=== PATIENT | male | born 1960 | race Caucasian/White ===

== ENCOUNTER 2017-02-26 15:45 | Inpatient (IN) | payer OTHER ==
[~2017-02-26] VITALS: Ht 170.2 cm; Wt 60.7 kg
[2017-02-26 20:41] VITALS: BP 153/86; RESP 18
[2017-02-26 22:00] VITALS: Ht 170.2 cm; Wt 60.7 kg
[2017-02-26 22:57] LABS: ADD UMIC YES; UR ASCORBIC ACID NEGATIVE (NEGATIVE); UR BILIRUBIN (Dip) NEGATIVE (NEGATIVE); UR BLOOD (Dip) NEGATIVE (NEGATIVE); UR CLARITY CLEAR (CLEAR); UR COLOR YELLOW (YELLOW); UR GLUCOSE (Dip) NEGATIVE (NEGATIVE); UR KETONES (Dip) NEGATIVE (NEGATIVE); UR LEUKOCYTE ESTERASE (Dip) NEGATIVE Leu/ul (NEGATIVE); UR NITRITE (Dip) NEGATIVE (NEGATIVE); UR RBC 1 /HPF (0-5); UR SPECIFIC GRAVITY (Dip) 1.014 (1.003-1.030); UR TOTAL PROTEIN (Dip) 2+ mg/dl (NEGATIVE); UR UROBILINOGEN (Dip) NEGATIVE (NEGATIVE)
[2017-02-26] MEDS ORDERED: GLUCOSE GEL 15 GRAM TUBE PO PRN ×2 (23:30)
[2017-02-26] MEDS ORDERED: DEXTROSE 50% 50 ML SYRINGE IV PRN ×2 (23:30)
[2017-02-26] MEDS ORDERED: MAGNESIUM HYDROXIDE 30ML CUP PO PRN (23:30)
[2017-02-26] MEDS ORDERED: GLUCOSE GEL 15 GRAM TUBE BUCCAL PRN (23:30)
[2017-02-26] MEDS ORDERED: LACTULOSE 30ML CUP PO PRN (23:30)
[2017-02-26] MEDS ORDERED: HYDROCODONE/APAP (5/325) TAB PO PRN (23:30)
[2017-02-26] MEDS ORDERED: GLUCAGON 1 MG INJ IM PRN (23:30)
[2017-02-26] MEDS ORDERED: BISACODYL 10 MG SUPP PR PRN (23:30)
[2017-02-27] MEDS: HYDROCODONE/APAP (5/325) TAB PO PRN ×6 (00:01→21:47)
[2017-02-27] MEDS: ACCUCHECK AT 2AM (Patients on SS coverage) XX SCH (02:30)
[2017-02-27] MEDS: GABAPENTIN 300 MG CAP PO SCH ×3 (06:31→21:02)
[2017-02-27 07:28] LABS: BASOPHILS % 0.3 % (0.0-2.0); EOSINOPHILS # 0.1 10^3/ul (0.0-0.5); EOSINOPHILS % 1.6 % (0.0-7.0); HEMATOCRIT 35.7 % (42.0-52.0); HEMOGLOBIN 12.2 g/dl (14.0-18.0); LYMPHOCYTES # 2.6 10^3/ul (0.8-2.9); LYMPHOCYTES % 41.4 % (15.0-51.0); MEAN CORPUSCULAR HEMOGLOBIN 28.8 pg (29.0-33.0); MEAN CORPUSCULAR HGB CONC 34.2 g/dl (32.0-37.0); MEAN CORPUSCULAR VOLUME 84.2 fl (82.0-101.0); MONOCYTE # 0.5 10^3/ul (0.3-0.9); MONOCYTES % 8.6 % (0.0-11.0); NEUTROPHILS % 47.9 % (39.0-77.0); PLATELET COUNT 237 10^3/UL (140-415); RED BLOOD COUNT 4.24 10^6/ul (4.70-6.10); WHITE BLOOD COUNT 6.2 10^3/ul (4.8-10.8)
[2017-02-27 07:33] LABS: ADD SCAN DIFF NO
[2017-02-27 07:48] VITALS: BP 151/85; RESP 18
[2017-02-27 08:03] LABS: ALBUMIN 3.5 g/dl (3.3-4.9); CREATININE 1.37 mg/dl (0.61-1.24); POTASSIUM 4.5 mmol/L (3.5-5.1)
[2017-02-27] MEDS: HYDROCHLOROTHIAZIDE 12.5 MG CAP PO SCH (08:21)
[2017-02-27] MEDS: AMLODIPINE 10 MG TAB PO SCH (08:21)
[2017-02-27] MEDS: ASPIRIN (EC) 325 MG TAB PO SCH (08:21)
[2017-02-27] MEDS: DOCUSATE SODIUM 100 MG CAP PO SCH ×2 (08:22→21:02)
[2017-02-27] MEDS: AMIODARONE 200 MG TAB PO SCH ×2 (08:22→21:02)
[2017-02-27] MEDS: Insulin NOVOLOG SS MILD Algorithm (SS with meals and bedtime) SC SCH ×4 (08:26→21:00)
--- NOTE | 2017-02-27 12:05 | CONS ---
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 Diabetes Mellitus type 2. 2. Diabetic Polyneuropathy. 3. Dysphagia. 4. Chronic Kidney Disease. 6. Hyperlipidemia 7. COPD 8. Polysubstance abuse 9. Impairments in self-care, mobility and cognition. PLAN: The patient has been admitted for comprehensive interdisciplinary acute rehab and is anticipated to tolerate 3 hours of daily therapy in divided doses for at least 5/7 days a week. The treatment plan will include: 1. Physical therapy to focus on bed mobility, transfers, and household ambulation with the goal of having the patient reach a standby assist at the wheelchair level, minimal assist for ambulation. 2. Occupational therapy to focus on hygiene, grooming, dressing, bathing, and toileting activities with the goal of having the patient reach a standby assist level at the wheelchair level. 3. Speech therapy for full cognitive assessment and retraining in addition to dysphagia management with the goal of having the patient return to baseline cognition and meet nutritional needs by mouth. 4. Rehabilitation nursing for carryover of therapeutic interventions, the goal of continent of bowel and bladder, the goal of pain adequately managed on oral medications. ESTIMATED LENGTH OF STAY: 14 days. DISPOSITION GOAL: Home. Rehabilitation Barrier: Cognition and aphasia Intervention for barrier: Speech therapy I acknowledge that I performed a full physical examination on this patient within 24 hours of admission to the rehabilitation unit and believe the patient is a good candidate for comprehensive interdisciplinary rehab care and is anticipated to make reasonable goals in a reasonable period of time as outlined above. Consultation Date/Type/Reason Admit Date/Time Feb 26, 2017 at 20:05 Date of Consultation: Feb 27, 2017 Type of Consultation: Rehabilitation Reason for Consultation Rehabilitation Post Admission Physician Evaluation Hx of Present Illness The patient is a 56 year-old right handed male with a history of uncontrolled diabetes, diabetic neuropathy, hypertension, chronic kidney disease, hyperlipidemia, COPD, polysubstance abuse who was admitted with complaints of severe headache right-sided weakness dysarthria and aphasia. Imaging studies were performed and revealed an acute infarct in the left hailey. Patient started on aspirin. Patient also noted to have dysphasia. The patient's hospital course is also notable for cognitive impairment, and significant impairments in self-care and mobility as compared to baseline. The patient has been cleared to transfer to the rehabilitation unit for comprehensive interdisciplinary rehab care. FUNCTIONAL HISTORY: Prior to recent events, he was independent in self-care tasks and mobility. Currently, he requires moderate assist to maximal assist for self-care and mobility tasks. Constitutional: No chills, No diaphoresis, No disoriented, No febrile, No improved, No no complaints, No other, No poor po, No requiring IVF, No requiring O2 Eyes: No discharge, No no complaints, No other, No pain, No redness, No visual change ENT: No bleeding, No congestion, No discharge, No dysphagia, No no complaints, No other, No pain, No sore throat Respiratory: No cough, No no complaints, No other, No pain, No pleuritic pain, No shortness of breath, No sputum, No wheezing Cardiovascular: No chest pain, No edema, No lightheadedness, No no complaints, No orthopenea, No other, No palpitations, No paroxysmal nocturnal dyspnea Gastrointestinal: No blood, No constipation, No decreased appetite, No diarrhea , No flatus, No nausea, No no complaints, No other, No pain, No passing stool, No vomiting Genitourinary: No bleeding, No discharge, No dysuria, No flank pain, No hematuria, No no complaints, No other Past Medical History PAST MEDICAL HISTORY: 1. Polysubstance abuse 2. polyneuropathy 3. Chronic kidney disease. 4. Diabetes mellitus type 2. 5. Hypertension. 6. Chronic obstructive pulmonary disease. Social History SOCIAL HISTORY: The patient lives at home and hopes to return there upon discharge. Smoking Status: Former smoker Exam/Review of Systems Vital Signs Vitals Vital Signs Date Time Temp Pulse Resp B/P Pulse Ox O2 Delivery O2 Flow Rate FiO2 02/27/17 07:48 97.9 62 18 151/85 96 Intake and Output 02/26/17 02/26/17 02/27/17 15:00 23:00 07:00 Intake Total 1050 ml Output Total 600 ml Balance 450 ml Exam PHYSICAL EXAMINATION: VITAL SIGNS: The patient is currently afebrile with stable vital signs. HEENT: The extraocular motions are intact. Oropharynx is clear. LUNGS: Clear anteriorly. CARDIAC: S1, S2. ABDOMEN: Soft, nontender, positive bowel sounds. NEUROLOGIC: He is awake and alert, and will follow simple 1-step commands. He demonstrates good strength in left upper and lower extremity. He demonstrates antigravity strength in right lower extremity. He has impaired dynamic balance Functional status_ Mod to max assist for self care and mobility. I have reviewed the preadmission screen and the patient's current functional status is consistent with the preadmission screen. Results Result Diagram: 02/27/17 0605 02/27/17 0645 Results 24 hrs Laboratory Tests Test 02/26/17 21:45 02/26/17 23:07 02/27/17 06:05 02/27/17 06:45 Urine Color YELLOW Urine Clarity CLEAR Urine pH 6.0 Urine Specific [place] 1.014 Urine Ketones NEGATIVE Urine Nitrite NEGATIVE Urine Bilirubin NEGATIVE Urine Urobilinogen NEGATIVE Urine Leukocyte Esterase NEGATIVE Urine Microscopic RBC 1 Urine Microscopic WBC 0 Urine Hemoglobin NEGATIVE Urine Glucose NEGATIVE Urine Total Protein 2+ H Bedside Glucose 140 White Blood Count 6.2 Red Blood Count 4.24 L Hemoglobin 12.2 L Hematocrit 35.7 L Mean Corpuscular Volume 84.2 Mean Corpuscular Hemoglobin 28.8 L Mean Corpuscular Hemoglobin Concent 34.2 Red Cell Distribution Width 13.0 Platelet Count 237 Mean Platelet Volume 12.0 H Neutrophils % 47.9 Lymphocytes % 41.4 Monocytes % 8.6 Eosinophils % 1.6 Basophils % 0.3 Nucleated Red Blood Cells % 0.0 Neutrophils # 3.0 Lymphocytes # 2.6 Monocytes # 0.5 Eosinophils # 0.1 Basophils # 0.0 Nucleated Red Blood Cells # 0.0 Sodium Level 136 Potassium Level 4.5 Chloride Level 104 Carbon Dioxide Level 25 Anion Gap 12 Blood Urea Nitrogen 37 H Creatinine 1.37 H Glucose Level 161 Calcium Level 9.0 Total Bilirubin 0.0 L Direct Bilirubin 0.00 Indirect Bilirubin 0.0 Aspartate Amino Transf (AST/SGOT) 37 Alanine Aminotransferase (ALT/SGPT) 37 Alkaline Phosphatase 61 Total Protein 7.0 Albumin 3.5 Globulin 3.50 H Albumin/Globulin Ratio 1.00 Test 02/27/17 08:03 Bedside Glucose 155 Medications Medications ALLERGIES: Lisinopril. Current Medications Docusate Sodium (Colace) 100 mg BID PO Last administered on 02/27/17t 08:22; Admin Dose 100 MG; Start 02/27/17 at 09:00 Senna (Senokot) 1 tab HS PO ; Start 02/27/17 at 21:00 Bisacodyl (Dulcolax Supp) 10 mg DAILY PRN [place] CONSTIPATION; Start 02/26/17 at 23 :30 Magnesium Hydroxide (Milk Of Mag) 30 ml BID PRN PO CONSTIPATION; Start at 23:30 Lactulose (Enulose) 20 gm DAILY PRN PO CONSTIPATION; Start 02/26/17 at 23:30 Acetaminophen (Tylenol Tab) 650 mg Q4H PRN PO FEVER, H/A; MILD PAIN; Start at 23:30 Acetaminophen/ Hydrocodone Bitart ([place] (5/325)) 1 tab Q4H PRN PO MODERATE PAIN LEVEL 4-6; Start 02/26/17 at 23:30 Acetaminophen/ Hydrocodone Bitart ([place] (5/325)) 2 tab Q4H PRN PO SEVERE PAIN Last administered on 02/27/17 08:22; Admin Dose 2 TAB; Start 02/26/17 at 23:30 Amiodarone HCl (Cordarone) 200 mg BID PO Last administered on 02/27/17 08:22; Admin Dose 200 MG; Start 02/27/17 at 09:00 Amlodipine Besylate (Norvasc) 10 mg DAILY PO Last administered on 02/27/17 08: 21; Admin Dose 10 MG; Start 02/27/17 at 09:00 Atorvastatin Calcium (Lipitor) 20 mg DAILY@21 PO ; Start 02/27/17 at 21:00 Carvedilol (Coreg) 12.5 mg BID PO Last administered on 02/27/17 08:21; Admin Dose 12.5 MG; Start 02/27/17 at 09:00 Hydralazine HCl (Apresoline) 100 mg TID PO Last administered on 02/27/17 08:21 ; Admin Dose 100 MG; Start 02/27/17 at 09:00 Aspirin (Ecotrin) 325 mg DAILY PO Last administered on 02/27/17 08:21; Admin Dose 325 MG; Start 02/27/17 at 09:00 Hydrochlorothiazide (Hydrochlorothiazide) 12.5 mg DAILY PO Last administered on 02/27/17 08:21; Admin Dose 12.5 MG; Start 02/27/17 at 09:00 Clonidine (Catapres) 0.1 mg Q6H PRN PO ELEVATED BLOOD PRESSURE; Start 02/26/17 at 23:30 Diagnostic Test (Pha) (Accu-Chek) 1 ea 02 XX ; Start 02/27/17 at 02:00 Miscellaneous Information 1 ea NOTE XX ; Start 02/26/17 at 23:30 Glucose (Glutose) 15 gm Q15M PRN PO DECREASED GLUCOSE; Start 02/26/17 at 23:30 Glucose (Glutose) 22.5 gm Q15M PRN PO DECREASED GLUCOSE; Start 02/26/17 at 23: 30 Dextrose (D50w Syringe) 25 ml Q15M PRN IV DECREASED GLUCOSE; Start 02/26/17 at 23:30 Dextrose (D50w Syringe) 50 ml Q15M PRN IV DECREASED GLUCOSE; Start 02/26/17 at 23:30 Glucagon (Glucagen) 1 mg Q15M PRN IM DECREASED GLUCOSE; Start 02/26/17 at 23:30 Glucose (Glutose) 15 gm Q15M PRN BUCCAL DECREASED GLUCOSE; Start 02/26/17 at 23 :30 Gabapentin (Neurontin) 300 mg Q8 PO Last administered on 02/27/17 06:31; Admin Dose 300 MG; Start 02/27/17 at 06:00 TAYLOR RON MD Feb 27, 2017 12:05
[2017-02-27 20:00] VITALS: BP 151/89; RESP 18
[2017-02-27] MEDS: SENNA TAB PO SCH (21:02)
[2017-02-27] MEDS: ATORVASTATIN 20 MG TAB PO SCH (21:02)
[2017-02-28] MEDS: ACCUCHECK AT 2AM (Patients on SS coverage) XX SCH (02:00)
[2017-02-28] MEDS: HYDROCODONE/APAP (5/325) TAB PO PRN ×5 (03:27→21:00)
[2017-02-28] MEDS: GABAPENTIN 300 MG CAP PO SCH ×3 (06:21→21:01)
[2017-02-28 07:30] VITALS: BP 154/87; RESP 18
[2017-02-28] MEDS: DOCUSATE SODIUM 100 MG CAP PO SCH ×2 (08:07→21:02)
[2017-02-28] MEDS: AMLODIPINE 10 MG TAB PO SCH (08:07)
[2017-02-28] MEDS: AMIODARONE 200 MG TAB PO SCH ×2 (08:07→21:04)
[2017-02-28] MEDS: ASPIRIN (EC) 325 MG TAB PO SCH (08:07)
[2017-02-28] MEDS: HYDROCHLOROTHIAZIDE 12.5 MG CAP PO SCH (08:07)
[2017-02-28] MEDS: Insulin NOVOLOG SS MILD Algorithm (SS with meals and bedtime) SC SCH ×4 (08:09→21:00)
--- NOTE | 2017-02-28 10:52 | CONS ---
Date/Time of Note Date/Time of Note DATE: 02/28/17 TIME: 10:50 Consult Date/Type/Reason Admit Date/Time Feb 26, 2017 at 20:05 Initial Consult Date 02/27/17 Type of Consultation: Rehabilitation Subjective Currently comfortable Objective Lungs clear anterior Minimal to moderate assist Vital Signs Date Time Temp Pulse Resp B/P Pulse Ox O2 Delivery O2 Flow Rate FiO2 02/27/17 20:00 98.5 70 18 151/89 97 Intake and Output 02/27/17 02/27/17 02/28/17 15:00 23:00 07:00 Intake Total 1000 ml 600 ml 700 ml Output Total 200 ml 750 ml Balance 800 ml -150 ml 700 ml Results/Medications Result Diagram: 02/27/17 0605 02/27/17 0645 Results 24 hrs Laboratory Tests Test 02/27/17 12:25 02/27/17 17:20 02/27/17 20:53 02/28/17 07:55 Bedside Glucose 185 173 149 183 Medications Current Medications Docusate Sodium (Colace) 100 mg BID PO Last administered on 02/28/17 08:07; Admin Dose 100 MG; Start 02/27/17 at 09:00 Senna (Senokot) 1 tab HS PO Last administered on 02/27/17 21:02; Admin Dose 1 TAB; Start 02/27/17 at 21:00 Bisacodyl (Dulcolax Supp) 10 mg DAILY PRN [place] CONSTIPATION; Start 02/26/17 at 23 :30 Magnesium Hydroxide (Milk Of Mag) 30 ml BID PRN PO CONSTIPATION; Start at 23:30 Lactulose (Enulose) 20 gm DAILY PRN PO CONSTIPATION; Start 02/26/17 at 23:30 Acetaminophen (Tylenol Tab) 650 mg Q4H PRN PO FEVER, H/A; MILD PAIN; Start at 23:30 Acetaminophen/ Hydrocodone Bitart ([place] (5/325)) 1 tab Q4H PRN PO MODERATE PAIN LEVEL 4-6; Start 02/26/17 at 23:30 Acetaminophen/ Hydrocodone Bitart ([place] (5/325)) 2 tab Q4H PRN PO SEVERE PAIN Last administered on 02/28/17 07:37; Admin Dose 2 TAB; Start 02/26/17 at 23:30 Amiodarone HCl (Cordarone) 200 mg BID PO Last administered on 02/28/17 08:07; Admin Dose 200 MG; Start 02/27/17 at 09:00 Amlodipine Besylate (Norvasc) 10 mg DAILY PO Last administered on 02/28/17 08: 07; Admin Dose 10 MG; Start 02/27/17 at 09:00 Atorvastatin Calcium (Lipitor) 20 mg DAILY@21 PO Last administered on 21:02; Admin Dose 20 MG; Start 02/27/17 at 21:00 Carvedilol (Coreg) 12.5 mg BID PO Last administered on 02/28/17 08:08; Admin Dose 12.5 MG; Start 02/27/17 at 09:00 Hydralazine HCl (Apresoline) 100 mg TID PO Last administered on 02/28/17 08:08 ; Admin Dose 100 MG; Start 02/27/17 at 09:00 Aspirin (Ecotrin) 325 mg DAILY PO Last administered on 02/28/17 08:07; Admin Dose 325 MG; Start 02/27/17 at 09:00 Hydrochlorothiazide (Hydrochlorothiazide) 12.5 mg DAILY PO Last administered on 02/28/17 08:07; Admin Dose 12.5 MG; Start 02/27/17 at 09:00 Clonidine (Catapres) 0.1 mg Q6H PRN PO ELEVATED BLOOD PRESSURE; Start 02/26/17 at 23:30 Diagnostic Test (Pha) (Accu-Chek) 1 ea 02 XX ; Start 02/27/17 at 02:00 Miscellaneous Information 1 ea NOTE XX ; Start 02/26/17 at 23:30 Glucose (Glutose) 15 gm Q15M PRN PO DECREASED GLUCOSE; Start 02/26/17 at 23:30 Glucose (Glutose) 22.5 gm Q15M PRN PO DECREASED GLUCOSE; Start 02/26/17 at 23: 30 Dextrose (D50w Syringe) 25 ml Q15M PRN IV DECREASED GLUCOSE; Start 02/26/17 at 23:30 Dextrose (D50w Syringe) 50 ml Q15M PRN IV DECREASED GLUCOSE; Start 02/26/17 at 23:30 Glucagon (Glucagen) 1 mg Q15M PRN IM DECREASED GLUCOSE; Start 02/26/17 at 23:30 Glucose (Glutose) 15 gm Q15M PRN BUCCAL DECREASED GLUCOSE; Start 02/26/17 at 23 :30 Gabapentin (Neurontin) 300 mg Q8 PO Last administered on 02/28/17t 06:21; Admin Dose 300 MG; Start 02/27/17 at 06:00 Mupirocin (Bactroban) 1 applic BID TOP ; Start 02/28/17 at 21:00; Stop 03/07/17 at 20:59 Assessment/Plan Chief Complaint/Hosp Course The patient is a 56 year-old right handed male with a history of uncontrolled diabetes, diabetic neuropathy, hypertension, chronic kidney disease, hyperlipidemia, COPD, polysubstance abuse who was admitted with complaints of severe headache right-sided weakness dysarthria and aphasia. Imaging studies were performed and revealed an acute infarct in the left hailey. Patient started on aspirin. Patient also noted to have dysphasia. The patient's hospital course is also notable for cognitive impairment, and significant impairments in self-care and mobility as compared to baseline. The patient has been cleared to transfer to the rehabilitation unit for comprehensive interdisciplinary rehab care. FUNCTIONAL HISTORY: Prior to recent events, he was independent in self-care tasks and mobility. Currently, he requires moderate assist to maximal assist for self-care and mobility tasks. 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 Dysphagia-continue speech therapy Chronic Kidney Disease. Hyperlipidemia COPD Polysubstance abuse TAYLOR RON MD Feb 28, 2017 10:52
--- NOTE | 2017-02-28 12:23 | HP ---
Date/Time of Note Date/Time of Note DATE: 02/28/17 TIME: 12:18 Assessment/Plan Lines/Catheters Urinary Cath still in place: No Assessment/Plan Assessment/Plan 1 acute CVA with right-sided hemiparesis. Plan is to continue current medical management continue aspirin continue statin therapy continue good blood pressure control. Continue physical therapy occupational therapy 2. Hypertension continue current blood pressure regimen 3. Renal insufficiency possible CKD. Etiology may be secondary to hypertensive nephrosclerosis. Other possibilities include ATN. Plan is check UA with microanalysis check urine lites will check renal ultrasound. We will continue supportive care renally dose meds avoid nephrotoxic 4. Anemia monitor H&H levels 5 diabetes continue Accu-Cheks insulin sliding scale 6 mineral bone disorder will monitor calcium phosphorus levels 7 history of COPD. Continue to monitor continue medical management 8. GI DVT prophylaxis continue PPI aspirin sequential leg squeezers 9. History of arrhythmia. Patient is on amiodarone and Coreg. We will continue to monitor consider cardiology evaluation HPI/ROS Admit Date/Time Admit Date/Time Feb 26, 2017 at 20:05 Hx of Present Illness Acute CVA acute CVA ROS This is a 56-year-old -[place] male with a past medical history of hypertension diabetes dyslipidemia COPD who was presented to an outside hospital with right-sided weakness numbness and inability to speak. She in the emergency room had a CT scan which showed findings of a low attenuation area and anterior internal capsule and low-attenuation area in the hailey consistent with acute infarct. Patient was subsequently admitted where he was seen by neurologist. The patient had full workup including 2D echo carotid duplex ultrasound and MRI of the brain. The patient was placed on full aspirin. Patient was eventually stabilized and transferred to [facility] acute rehab for continued care. Upon my evaluation to the patient at this time he has an expressive aphasia. He denies any chest pain shortness breath fevers or chills. Eyes: No discharge, No no complaints, No other, No pain, No redness, No visual change ENT: No bleeding, No congestion, No discharge, No dysphagia, No no complaints, No other, No pain, No sore throat Respiratory: No cough, No no complaints, No other, No pain, No pleuritic pain, No shortness of breath, No sputum, No wheezing Cardiovascular: No chest pain, No edema, No lightheadedness, No no complaints, No orthopenea, No other, No palpitations, No paroxysmal nocturnal dyspnea Gastrointestinal: No blood, No constipation, No decreased appetite, No diarrhea , No flatus, No nausea, No no complaints, No other, No pain, No passing stool, No vomiting Genitourinary: No bleeding, No discharge, No dysuria, No flank pain, No hematuria, No no complaints, No other PMH/Family/Social Past Medical History Per HPI Past Surgical History None Social History Smoking Status: Former smoker Exam/Review of Systems Vital Signs Vitals Vital Signs Date Time Temp Pulse Resp B/P Pulse Ox O2 Delivery O2 Flow Rate FiO2 02/27/17 20:00 98.5 70 18 151/89 97 Intake and Output 02/27/17 02/27/17 02/28/17 15:00 23:00 07:00 Intake Total 1000 ml 600 ml 700 ml Output Total 200 ml 750 ml Balance 800 ml -150 ml 700 ml Exam Exam Generally patient is in no acute distress HEENT head is normocephalic pupils are reactive to light Heart is regular rate no gallops clicks Lungs show diminished breath sounds at the base Abdomen soft nontender palpation rebound guarding Extremities are negative for clubbing cyanosis no edema Dermatologically no rashes Musculoskeletal no joint effusion Neurologically patient has right-sided hemiparesis Labs Result Diagram: 02/27/17 0602/27/17 0645 Medications Medications Current Medications Docusate Sodium (Colace) 100 mg BID PO Last administered on 02/28/17 08:07; Admin Dose 100 MG; Start 02/27/17 at 09:00 Senna (Senokot) 1 tab HS PO Last administered on 02/27/17 21:02; Admin Dose 1 TAB; Start 02/27/17 at 21:00 Bisacodyl (Dulcolax Supp) 10 mg DAILY PRN [place] CONSTIPATION; Start 02/26/17 at 23 :30 Magnesium Hydroxide (Milk Of Mag) 30 ml BID PRN PO CONSTIPATION; Start at 23:30 Lactulose (Enulose) 20 gm DAILY PRN PO CONSTIPATION; Start 02/26/17 at 23:30 Acetaminophen (Tylenol Tab) 650 mg Q4H PRN PO FEVER, H/A; MILD PAIN; Start at 23:30 Acetaminophen/ Hydrocodone Bitart ([place] (5/325)) 1 tab Q4H PRN PO MODERATE PAIN LEVEL 4-6; Start 02/26/17 at 23:30 Acetaminophen/ Hydrocodone Bitart ([place] (5/325)) 2 tab Q4H PRN PO SEVERE PAIN Last administered on 02/28/17 11:30; Admin Dose 2 TAB; Start 02/26/17 at 23:30 Amiodarone HCl (Cordarone) 200 mg BID PO Last administered on 02/28/17 08:07; Admin Dose 200 MG; Start 02/27/17 at 09:00 Amlodipine Besylate (Norvasc) 10 mg DAILY PO Last administered on 02/28/17 08: 07; Admin Dose 10 MG; Start 02/27/17 at 09:00 Atorvastatin Calcium (Lipitor) 20 mg DAILY@21 PO Last administered on 21:02; Admin Dose 20 MG; Start 02/27/17 at 21:00 Carvedilol (Coreg) 12.5 mg BID PO Last administered on 02/28/17 08:08; Admin Dose 12.5 MG; Start 02/27/17 at 09:00 Hydralazine HCl (Apresoline) 100 mg TID PO Last administered on 02/28/17 08:08 ; Admin Dose 100 MG; Start 02/27/17 at 09:00 Aspirin (Ecotrin) 325 mg DAILY PO Last administered on 02/28/17 08:07; Admin Dose 325 MG; Start 02/27/17 at 09:00 Hydrochlorothiazide (Hydrochlorothiazide) 12.5 mg DAILY PO Last administered on 02/28/17 08:07; Admin Dose 12.5 MG; Start 02/27/17 at 09:00 Clonidine (Catapres) 0.1 mg Q6H PRN PO ELEVATED BLOOD PRESSURE; Start 02/26/17 at 23:30 Diagnostic Test (Pha) (Accu-Chek) 1 ea 02 XX ; Start 02/27/17 at 02:00 Miscellaneous Information 1 ea NOTE XX ; Start 02/26/17 at 23:30 Glucose (Glutose) 15 gm Q15M PRN PO DECREASED GLUCOSE; Start 02/26/17 at 23:30 Glucose (Glutose) 22.5 gm Q15M PRN PO DECREASED GLUCOSE; Start 6/29/17 at 23: 30 Dextrose (D50w Syringe) 25 ml Q15M PRN IV DECREASED GLUCOSE; Start 02/26/17 at 23:30 Dextrose (D50w Syringe) 50 ml Q15M PRN IV DECREASED GLUCOSE; Start 02/26/17 at 23:30 Glucagon (Glucagen) 1 mg Q15M PRN IM DECREASED GLUCOSE; Start 02/26/17 at 23:30 Glucose (Glutose) 15 gm Q15M PRN BUCCAL DECREASED GLUCOSE; Start 02/26/17 at 23 :30 Gabapentin (Neurontin) 300 mg Q8 PO Last administered on 02/28/17t 06:21; Admin Dose 300 MG; Start 02/27/17 at 06:00 Mupirocin (Bactroban) 1 applic BID TOP ; Start 02/28/17 at 21:00; Stop 03/07/17 at 20:59 BRITTON ARAMBULA DO Feb 28, 2017 12:23
[2017-02-28 12:45] LABS: ADD UMIC YES; UR ASCORBIC ACID NEGATIVE (NEGATIVE); UR BILIRUBIN (Dip) NEGATIVE (NEGATIVE); UR BLOOD (Dip) NEGATIVE (NEGATIVE); UR CLARITY CLEAR (CLEAR); UR COLOR YELLOW (YELLOW); UR GLUCOSE (Dip) NEGATIVE (NEGATIVE); UR KETONES (Dip) NEGATIVE (NEGATIVE); UR LEUKOCYTE ESTERASE (Dip) NEGATIVE Leu/ul (NEGATIVE); UR NITRITE (Dip) NEGATIVE (NEGATIVE); UR RBC 1 /HPF (0-5); UR SPECIFIC GRAVITY (Dip) 1.014 (1.003-1.030); UR TOTAL PROTEIN (Dip) 2+ mg/dl (NEGATIVE); UR UROBILINOGEN (Dip) NEGATIVE (NEGATIVE)
[2017-02-28 19:51] VITALS: BP 135/83; RESP 18
[2017-02-28] MEDS: MUPIROCIN 2% 22 GM OINT TOP SCH (20:58)
[2017-02-28] MEDS: ATORVASTATIN 20 MG TAB PO SCH (21:01)
[2017-02-28] MEDS: FAMOTIDINE 20 MG TAB PO SCH (21:03)
[2017-02-28] MEDS: SENNA TAB PO SCH (21:03)
[2017-03-01] MEDS: HYDROCODONE/APAP (5/325) TAB PO PRN ×5 (00:53→20:52)
[2017-03-01] MEDS: ACCUCHECK AT 2AM (Patients on SS coverage) XX SCH (02:00)
[2017-03-01] MEDS: GABAPENTIN 300 MG CAP PO SCH ×3 (05:03→21:00)
[2017-03-01 06:56] LABS: BASOPHILS % 0.2 % (0.0-2.0); EOSINOPHILS # 0.1 10^3/ul (0.0-0.5); EOSINOPHILS % 1.4 % (0.0-7.0); HEMATOCRIT 37.5 % (42.0-52.0); HEMOGLOBIN 12.7 g/dl (14.0-18.0); LYMPHOCYTES # 2.5 10^3/ul (0.8-2.9); LYMPHOCYTES % 38.5 % (15.0-51.0); MEAN CORPUSCULAR HEMOGLOBIN 28.8 pg (29.0-33.0); MEAN CORPUSCULAR HGB CONC 33.9 g/dl (32.0-37.0); MEAN PLATELET VOLUME 11.5 fl (7.4-10.4); MONOCYTE # 0.6 10^3/ul (0.3-0.9); MONOCYTES % 8.5 % (0.0-11.0); NEUTROPHIL # 3.3 10^3/ul (1.6-7.5); NEUTROPHILS % 51.1 % (39.0-77.0); PLATELET COUNT 228 10^3/UL (140-415); RED BLOOD COUNT 4.41 10^6/ul (4.70-6.10); RED CELL DISTRIBUTION WIDTH 12.6 % (11.5-14.5); WHITE BLOOD COUNT 6.5 10^3/ul (4.8-10.8)
[2017-03-01 07:13] VITALS: BP 168/100
[2017-03-01 07:16] LABS: ADD SCAN DIFF NO
[2017-03-01 07:23] LABS: CALCIUM 9.6 mg/dl (8.4-10.2); CREATININE 1.47 mg/dl (0.61-1.24); MAGNESIUM 1.6 mg/dl (1.7-2.5); POTASSIUM 4.2 mmol/L (3.5-5.1)
[2017-03-01] MEDS: Insulin NOVOLOG SS MILD Algorithm (SS with meals and bedtime) SC SCH ×4 (08:05→20:53)
[2017-03-01] MEDS: AMIODARONE 200 MG TAB PO SCH ×2 (08:39→20:51)
[2017-03-01] MEDS: HYDROCHLOROTHIAZIDE 12.5 MG CAP PO SCH (08:40)
[2017-03-01] MEDS: DOCUSATE SODIUM 100 MG CAP PO SCH ×2 (08:40→20:52)
[2017-03-01] MEDS: ASPIRIN (EC) 325 MG TAB PO SCH (08:40)
[2017-03-01] MEDS: FAMOTIDINE 20 MG TAB PO SCH ×2 (08:41→20:52)
[2017-03-01] MEDS: AMLODIPINE 10 MG TAB PO SCH (08:41)
[2017-03-01] MEDS: MUPIROCIN 2% 22 GM OINT TOP SCH ×2 (08:41→20:52)
[2017-03-01 08:44] VITALS: BP 172/92; PULSE 62; RESP 18
[2017-03-01 10:11] VITALS: BP 128/83; PULSE 63
[2017-03-01] MEDS ORDERED: MAGNESIUM OXIDE 400 MG TAB PO ONE (10:30)
--- NOTE | 2017-03-01 12:03 | PN ---
Date/Time of Note Date/Time of Note DATE: 03/01/17 TIME: 10:20 Assessment/Plan Lines/Catheters Urinary Cath still in place: No Assessment/Plan Chief Complaint/Hosp Course 1 acute CVA with right-sided hemiparesis. Plan is to continue current medical management continue aspirin continue statin therapy continue good blood pressure control. Continue physical therapy occupational therapy 2. Hypertension continue current blood pressure regimen 3. 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 Patient with nephrotic range proteinuria -Urinalysis is bland. Patient has significant proteinuria on protein creatinine ratio. Albumin creatinine ratio spent will check renal ultrasound. We will continue supportive care renally dose meds avoid nephrotoxic -QUIN inhibitor/ARB once renal function stable 4. Anemia monitor H&H levels 5 diabetes continue Accu-Cheks insulin sliding scale 6 mineral bone disorder will monitor calcium phosphorus levels 7 history of COPD. Continue to monitor continue medical management 8. GI DVT prophylaxis continue PPI aspirin sequential leg squeezers 9. History of arrhythmia. Patient is on amiodarone and Coreg. We will continue to monitor consider cardiology evaluation Problems: Subjective 24 Hr Interval Summary Free Text/Dictation Patient noted to have high blood pressure this morning improved with as needed medication. Patient denied any chest pain fevers chills nausea vomiting. No other acute events noted. No other changes noted. Exam/Review of Systems Vital Signs Vitals Vital Signs Date Time Temp Pulse Resp B/P Pulse Ox O2 Delivery O2 Flow Rate FiO2 03/01/17 10:11 63 128/83 03/01/17 08:44 98.0 18 96 Room Air Intake and Output 02/28/17 02/28/17 03/01/17 15:00 23:00 07:00 Intake Total 1420 ml 120 ml Output Total 400 ml 950 ml Balance 1020 ml -830 ml Exam Generally patient is in no acute distress HEENT head is normocephalic pupils are reactive to light Heart is regular rate no gallops clicks Lungs show diminished breath sounds at the base Abdomen soft nontender palpation rebound guarding Extremities are negative for clubbing cyanosis no edema Dermatologically no rashes Musculoskeletal no joint effusion Neurologically patient has right-sided hemiparesis Results Result Diagram: 03/01/17 0630 03/01/17 0630 Results 24 hrs Laboratory Tests Test 02/28/17 11:35 02/28/17 12:31 02/28/17 16:57 02/28/17 20:56 Urine Color YELLOW Urine Clarity CLEAR Urine pH 6.0 Urine Specific [place] 1.014 Urine Ketones NEGATIVE Urine Nitrite NEGATIVE Urine Bilirubin NEGATIVE Urine Urobilinogen NEGATIVE Urine Leukocyte Esterase NEGATIVE Urine Microscopic RBC 1 Urine Microscopic WBC 0 Urine Hemoglobin NEGATIVE Urine Random Creatinine 55.59 Urine Random Sodium 76 Urine Glucose NEGATIVE Urine Total Protein 290.0 H Bedside Glucose 250 H 196 169 Test 03/01/17 06:30 03/01/17 07:46 White Blood Count 6.5 Red Blood Count 4.41 L Hemoglobin 12.7 L Hematocrit 37.5 L Mean Corpuscular Volume 85.0 Mean Corpuscular Hemoglobin 28.8 L Mean Corpuscular Hemoglobin Concent 33.9 Red Cell Distribution Width 12.6 Platelet Count 228 Mean Platelet Volume 11.5 H Neutrophils % 51.1 Lymphocytes % 38.5 Monocytes % 8.5 Eosinophils % 1.4 Basophils % 0.2 Nucleated Red Blood Cells % 0.0 Neutrophils # 3.3 Lymphocytes # 2.5 Monocytes # 0.6 Eosinophils # 0.1 Basophils # 0.0 Nucleated Red Blood Cells # 0.0 Sodium Level 138 Potassium Level 4.2 Chloride Level 101 Carbon Dioxide Level 25 Anion Gap 16 Blood Urea Nitrogen 45 H Creatinine 1.47 H Glucose Level 181 Calcium Level 9.6 Phosphorus Level 5.0 H Magnesium Level 1.6 L Bedside Glucose 176 Medications Medications Current Medications Docusate Sodium (Colace) 100 mg BID PO Last administered on 03/01/17 08:40; Admin Dose 100 MG; Start 02/27/17 at 09:00 Senna (Senokot) 1 tab HS PO Last administered on 02/28/17 21:03; Admin Dose 1 TAB; Start 02/27/17 at 21:00 Bisacodyl (Dulcolax Supp) 10 mg DAILY PRN [place] CONSTIPATION; Start 02/26/17 at 23 :30 Magnesium Hydroxide (Milk Of Mag) 30 ml BID PRN PO CONSTIPATION; Start at 23:30 Lactulose (Enulose) 20 gm DAILY PRN PO CONSTIPATION; Start 02/26/17 at 23:30 Acetaminophen (Tylenol Tab) 650 mg Q4H PRN PO FEVER, H/A; MILD PAIN; Start at 23:30 Acetaminophen/ Hydrocodone Bitart ([place] (5/325)) 1 tab Q4H PRN PO MODERATE PAIN LEVEL 4-6; Start 02/26/17 at 23:30 Acetaminophen/ Hydrocodone Bitart ([place] (5/325)) 2 tab Q4H PRN PO SEVERE PAIN Last administered on 03/01/17 04:58; Admin Dose 2 TAB; Start 02/26/17 at 23:30 Amiodarone HCl (Cordarone) 200 mg BID PO Last administered on 03/01/17 08:39; Admin Dose 200 MG; Start 02/27/17 at 09:00 Amlodipine Besylate (Norvasc) 10 mg DAILY PO Last administered on 03/01/17 08: 41; Admin Dose 10 MG; Start 02/27/17 at 09:00 Atorvastatin Calcium (Lipitor) 20 mg DAILY@21 PO Last administered on 02/28/17 21:01; Admin Dose 20 MG; Start 02/27/17 at 21:00 Carvedilol (Coreg) 12.5 mg BID PO Last administered on 03/01/17 08:41; Admin Dose 12.5 MG; Start 02/27/17 at 09:00 Hydralazine HCl (Apresoline) 100 mg TID PO Last administered on 03/01/17 08:40 ; Admin Dose 100 MG; Start 02/27/17 at 09:00 Aspirin (Ecotrin) 325 mg DAILY PO Last administered on 03/01/17 08:40; Admin Dose 325 MG; Start 02/27/17 at 09:00 Hydrochlorothiazide (Hydrochlorothiazide) 12.5 mg DAILY PO Last administered on 03/01/17 08:40; Admin Dose 12.5 MG; Start 02/27/17 at 09:00 Clonidine (Catapres) 0.1 mg Q6H PRN PO ELEVATED BLOOD PRESSURE Last administered on 03/01/17 07:12; Admin Dose 0.1 MG; Start 02/26/17 at 23:30 Diagnostic Test (Pha) (Accu-Chek) 1 ea 02 XX ; Start 02/27/17 at 02:00 Miscellaneous Information 1 ea NOTE XX ; Start 02/26/17 at 23:30 Glucose (Glutose) 15 gm Q15M PRN PO DECREASED GLUCOSE; Start 02/26/17 at 23:30 Glucose (Glutose) 22.5 gm Q15M PRN PO DECREASED GLUCOSE; Start 02/26/17 at 23: 30 Dextrose (D50w Syringe) 25 ml Q15M PRN IV DECREASED GLUCOSE; Start 02/26/17 at 23:30 Dextrose (D50w Syringe) 50 ml Q15M PRN IV DECREASED GLUCOSE; Start 02/26/17 at 23:30 Glucagon (Glucagen) 1 mg Q15M PRN IM DECREASED GLUCOSE; Start 02/26/17 at 23:30 Glucose (Glutose) 15 gm Q15M PRN BUCCAL DECREASED GLUCOSE; Start 02/26/17 at 23 :30 Gabapentin (Neurontin) 300 mg Q8 PO Last administered on 03/01/17 05:03; Admin Dose 300 MG; Start 02/27/17 at 06:00 Mupirocin (Bactroban) 1 applic BID TOP Last administered on 03/01/17 08:41; Admin Dose 1 APPLIC; Start 02/28/17 at 21:00; Stop 03/07/17 at 20:59 Famotidine (Pepcid) 20 mg BID PO Last administered on 03/01/17 08:41; Admin Dose 20 MG; Start 02/28/17 at 21:00 Magnesium Oxide (Mag-Ox 400) 400 mg ONCE ONCE PO ; Start 03/01/17 at 10:30; Stop 03/01/17 at 10:31 BRITTON ARAMBULA DO Mar 01, 2017 10:30
[2017-03-01 12:19] VITALS: BP 134/81; PULSE 60
--- NOTE | 2017-03-01 15:46 | RADRPT ---
PROCEDURE: Renal US. CLINICAL INDICATION: Renal insufficiency TECHNIQUE: Multiple sonographic images of the kidneys were obtained. The images were reviewed on a PACS workstation. COMPARISON: No prior studies are available for comparison. FINDINGS: The right kidney measures 10.6 cm. The left kidney measures 10.6 cm. Increased cortical echogenicity is identified in both kidneys. No masses, stones or hydronephrosis are identified. The bladder is filled with a moderate amount of urine and has an unremarkable appearance. IMPRESSION: Increased cortical echogenicity in both kidneys, possibly indicating medical renal disease. RPTAT: AA .Rk Santillan MD, MD Date Time Electronically viewed and signed by .Rk Santillan MD, MD on 03/01/2017 15:45 .P/
[2017-03-01 20:00] VITALS: BP 151/86; RESP 18
[2017-03-01] MEDS: ATORVASTATIN 20 MG TAB PO SCH (20:50)
[2017-03-01] MEDS: SENNA TAB PO SCH (20:52)
[2017-03-02] MEDS: HYDROCODONE/APAP (5/325) TAB PO PRN ×5 (00:46→20:28)
[2017-03-02] MEDS: ACCUCHECK AT 2AM (Patients on SS coverage) XX SCH (01:41)
[2017-03-02] MEDS: ACETAMINOPHEN 325 MG TAB PO PRN (02:34)
[2017-03-02] MEDS: GABAPENTIN 300 MG CAP PO SCH ×3 (05:52→21:19)
[2017-03-02 07:30] VITALS: BP 175/96; RESP 18
[2017-03-02] MEDS: Insulin NOVOLOG SS MILD Algorithm (SS with meals and bedtime) SC SCH ×4 (08:00→20:36)
--- NOTE | 2017-03-02 09:05 | CONS ---
Date/Time of Note Date/Time of Note DATE: 03/02/17 TIME: 09:03 Consult Date/Type/Reason Admit Date/Time Feb 26, 2017 at 20:05 Initial Consult Date 02/27/17 Type of Consultation: Rehabilitation Objective Vital Signs Date Time Temp Pulse Resp B/P Pulse Ox O2 Delivery O2 Flow Rate FiO2 03/01/17 20:00 97.9 60 18 151/86 95 03/01/17 08:44 Room Air Intake and Output 03/01/17 03/01/17 03/02/17 15:00 23:00 07:00 Intake Total 720 ml 200 ml Output Total 1350 ml Balance 720 ml -1150 ml INTERDISCIPLINARY TEAM CONFERENCE BOWEL- Cont BLADDER-Cont SKIN- intact OT- DRESSING-mod/max BATHING-mod/max TOILETING-max PT- BED MOBILITY-mod TRANSFERS-mod AMBULATION-max/mod 30 feet SPEECH- COGNITION-min/mod Communication- max DYPHAGIA A/P- Interdisciplinary team conference held today. Please see interdisciplinary sheet. Working toward d.[email or web address] on 03/12 with post discharge follow up of physical therapy, occupational therapy, and speech therapy Results/Medications Result Diagram: 03/01/17 0630 03/01/17 0630 Results 24 hrs Laboratory Tests Test 03/01/17 11:09 03/01/17 12:05 03/01/17 16:43 03/01/17 20:31 Hemoglobin A1c 8.2 H Bedside Glucose 189 188 176 Test 03/02/17 07:49 Bedside Glucose 200 Medications Current Medications Docusate Sodium (Colace) 100 mg BID PO Last administered on 03/01/17 20:52; Admin Dose 100 MG; Start 02/27/17 at 09:00 Senna (Senokot) 1 tab HS PO Last administered on 03/01/17 20:52; Admin Dose 1 TAB; Start 02/27/17 at 21:00 Bisacodyl (Dulcolax Supp) 10 mg DAILY PRN [place] CONSTIPATION; Start 02/26/17 at 23 :30 Magnesium Hydroxide (Milk Of Mag) 30 ml BID PRN PO CONSTIPATION; Start at 23:30 Lactulose (Enulose) 20 gm DAILY PRN PO CONSTIPATION; Start 02/26/17 at 23:30 Acetaminophen (Tylenol Tab) 650 mg Q4H PRN PO FEVER, H/A; MILD PAIN Last administered on 03/02/17 02:34; Admin Dose 650 MG; Start 02/26/17 at 23:30 Acetaminophen/ Hydrocodone Bitart ([place] (5/325)) 1 tab Q4H PRN PO MODERATE PAIN LEVEL 4-6; Start 02/26/17 at 23:30 Acetaminophen/ Hydrocodone Bitart ([place] (5/325)) 2 tab Q4H PRN PO SEVERE PAIN Last administered on 03/02/17 05:54; Admin Dose 2 TAB; Start 02/26/17 at 23:30 Amiodarone HCl (Cordarone) 200 mg BID PO Last administered on 03/01/17 20:51; Admin Dose 200 MG; Start 02/27/17 at 09:00 Amlodipine Besylate (Norvasc) 10 mg DAILY PO Last administered on 03/01/17 08: 41; Admin Dose 10 MG; Start 02/27/17 at 09:00 Atorvastatin Calcium (Lipitor) 20 mg DAILY@21 PO Last administered on 03/01/17 20:50; Admin Dose 20 MG; Start 02/27/17 at 21:00 Carvedilol (Coreg) 12.5 mg BID PO Last administered on 03/01/17 20:52; Admin Dose 12.5 MG; Start 02/27/17 at 09:00 Hydralazine HCl (Apresoline) 100 mg TID PO Last administered on 03/01/17 20:52 ; Admin Dose 100 MG; Start 02/27/17 at 09:00 Aspirin (Ecotrin) 325 mg DAILY PO Last administered on 03/01/17 08:40; Admin Dose 325 MG; Start 02/27/17 at 09:00 Hydrochlorothiazide (Hydrochlorothiazide) 12.5 mg DAILY PO Last administered on 03/01/17 08:40; Admin Dose 12.5 MG; Start 02/27/17 at 09:00 Clonidine (Catapres) 0.1 mg Q6H PRN PO ELEVATED BLOOD PRESSURE Last administered on 03/01/17 07:12; Admin Dose 0.1 MG; Start 02/26/17 at 23:30 Diagnostic Test (Pha) (Accu-Chek) 1 ea 02 XX ; Start 02/27/17 at 02:00 Miscellaneous Information 1 ea NOTE XX ; Start 02/26/17 at 23:30 Glucose (Glutose) 15 gm Q15M PRN PO DECREASED GLUCOSE; Start 02/26/17 at 23:30 Glucose (Glutose) 22.5 gm Q15M PRN PO DECREASED GLUCOSE; Start 02/26/17 at 23: 30 Dextrose (D50w Syringe) 25 ml Q15M PRN IV DECREASED GLUCOSE; Start 02/26/17 at 23:30 Dextrose (D50w Syringe) 50 ml Q15M PRN IV DECREASED GLUCOSE; Start 02/26/17 at 23:30 Glucagon (Glucagen) 1 mg Q15M PRN IM DECREASED GLUCOSE; Start 02/26/17 at 23:30 Glucose (Glutose) 15 gm Q15M PRN BUCCAL DECREASED GLUCOSE; Start 02/26/17 at 23 :30 Gabapentin (Neurontin) 300 mg Q8 PO Last administered on 03/02/17 05:52; Admin Dose 300 MG; Start 02/27/17 at 06:00 Mupirocin (Bactroban) 1 applic BID TOP Last administered on 03/01/17 20:52; Admin Dose 1 APPLIC; Start 02/28/17 at 21:00; Stop 03/07/17 at 20:59 Famotidine (Pepcid) 20 mg BID PO Last administered on 03/01/17 20:52; Admin Dose 20 MG; Start 02/28/17 at 21:00 Assessment/Plan Chief Complaint/Hosp Course The patient is a 56 year-old right handed male with a history of uncontrolled diabetes, diabetic neuropathy, hypertension, chronic kidney disease, hyperlipidemia, COPD, polysubstance abuse who was admitted with complaints of severe headache right-sided weakness dysarthria and aphasia. Imaging studies were performed and revealed an acute infarct in the left hailey. Patient started on aspirin. Patient also noted to have dysphasia. The patient's hospital course is also notable for cognitive impairment, and significant impairments in self-care and mobility as compared to baseline. The patient has been cleared to transfer to the rehabilitation unit for comprehensive interdisciplinary rehab care. FUNCTIONAL HISTORY: Prior to recent events, he was independent in self-care tasks and mobility. Currently, he requires moderate assist to maximal assist for self-care and mobility tasks. Problems: TAYLOR RON MD Mar 02, 2017 09:05
[2017-03-02] MEDS: DOCUSATE SODIUM 100 MG CAP PO SCH ×2 (09:30→20:28)
[2017-03-02] MEDS: AMIODARONE 200 MG TAB PO SCH ×2 (09:30→20:29)
[2017-03-02] MEDS: ASPIRIN (EC) 325 MG TAB PO SCH (09:32)
[2017-03-02] MEDS: AMLODIPINE 10 MG TAB PO SCH (09:33)
[2017-03-02] MEDS: HYDROCHLOROTHIAZIDE 12.5 MG CAP PO SCH (09:33)
[2017-03-02] MEDS: MUPIROCIN 2% 22 GM OINT TOP SCH ×2 (09:34→21:19)
[2017-03-02] MEDS: FAMOTIDINE 20 MG TAB PO SCH ×2 (09:37→20:29)
--- NOTE | 2017-03-02 12:27 | PN ---
Date/Time of Note Date/Time of Note DATE: 03/02/17 TIME: 12:26 Assessment/Plan Lines/Catheters Urinary Cath still in place: No Assessment/Plan Chief Complaint/Hosp Course 1 acute CVA with right-sided hemiparesis. Plan is to continue current medical management continue aspirin continue statin therapy continue good blood pressure control. Continue physical therapy occupational therapy 2. Hypertension continue current blood pressure regimen 3. 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 Patient with nephrotic range proteinuria -Urinalysis is bland. Patient has significant proteinuria on protein creatinine ratio. Albumin creatinine ratio spent will check renal ultrasound. We will continue supportive care renally dose meds avoid nephrotoxic -QUIN inhibitor/ARB once renal function stable 4. Anemia monitor H&H levels 5 diabetes continue Accu-Cheks insulin sliding scale 6 mineral bone disorder will monitor calcium phosphorus levels 7 history of COPD. Continue to monitor continue medical management 8. GI DVT prophylaxis continue PPI aspirin sequential leg squeezers 9. History of arrhythmia. Patient is on amiodarone and Coreg. We will continue to monitor consider cardiology evaluation Problems: Subjective 24 Hr Interval Summary Free Text/Dictation Patient stable. Blood pressure mildly elevated but improved with medications. No other events noted Exam/Review of Systems Vital Signs Vitals Vital Signs Date Time Temp Pulse Resp B/P Pulse Ox O2 Delivery O2 Flow Rate FiO2 03/02/17 07:30 98.7 63 18 175/96 99 03/01/17 08:44 Room Air Intake and Output 03/01/17 03/01/17 03/02/17 15:00 23:00 07:00 Intake Total 720 ml 200 ml Output Total 1350 ml Balance 720 ml -1150 ml Exam Generally patient is in no acute distress HEENT head is normocephalic pupils are reactive to light Heart is regular rate no gallops clicks Lungs show diminished breath sounds at the base Abdomen soft nontender palpation rebound guarding Extremities are negative for clubbing cyanosis no edema Dermatologically no rashes Musculoskeletal no joint effusion Neurologically patient has right-sided hemiparesis Results Result Diagram: 03/01/17 0630 03/01/17 0630 Results 24 hrs Laboratory Tests Test 03/01/17 16:43 03/01/17 20:31 03/02/17 07:49 03/02/17 12:04 Bedside Glucose 188 176 200 185 Medications Medications Current Medications Docusate Sodium (Colace) 100 mg BID PO Last administered on 03/02/17 09:30; Admin Dose 100 MG; Start 02/27/17 at 09:00 Senna (Senokot) 1 tab HS PO Last administered on 03/01/17 20:52; Admin Dose 1 TAB; Start 02/27/17 at 21:00 Bisacodyl (Dulcolax Supp) 10 mg DAILY PRN [place] CONSTIPATION; Start 02/26/17 at 23 :30 Magnesium Hydroxide (Milk Of Mag) 30 ml BID PRN PO CONSTIPATION; Start at 23:30 Lactulose (Enulose) 20 gm DAILY PRN PO CONSTIPATION; Start 02/26/17 at 23:30 Acetaminophen (Tylenol Tab) 650 mg Q4H PRN PO FEVER, H/A; MILD PAIN Last administered on 03/02/17 02:34; Admin Dose 650 MG; Start 02/26/17 at 23:30 Acetaminophen/ Hydrocodone Bitart ([place] (5/325)) 1 tab Q4H PRN PO MODERATE PAIN LEVEL 4-6; Start 02/26/17 at 23:30 Acetaminophen/ Hydrocodone Bitart ([place] (5/325)) 2 tab Q4H PRN PO SEVERE PAIN Last administered on 03/02/17 11:07; Admin Dose 2 TAB; Start 02/26/17 at 23:30 Amiodarone HCl (Cordarone) 200 mg BID PO Last administered on 03/02/17 09:30; Admin Dose 200 MG; Start 02/27/17 at 09:00 Amlodipine Besylate (Norvasc) 10 mg DAILY PO Last administered on 03/02/17 09: 33; Admin Dose 10 MG; Start 02/27/17 at 09:00 Atorvastatin Calcium (Lipitor) 20 mg DAILY@21 PO Last administered on 03/01/17 20:50; Admin Dose 20 MG; Start 02/27/17 at 21:00 Carvedilol (Coreg) 12.5 mg BID PO Last administered on 03/02/17 09:31; Admin Dose 12.5 MG; Start 02/27/17 at 09:00 Hydralazine HCl (Apresoline) 100 mg TID PO Last administered on 03/02/17 09:30 ; Admin Dose 100 MG; Start 02/27/17 at 09:00 Aspirin (Ecotrin) 325 mg DAILY PO Last administered on 03/02/17 09:32; Admin Dose 325 MG; Start 02/27/17 at 09:00 Hydrochlorothiazide (Hydrochlorothiazide) 12.5 mg DAILY PO Last administered on 03/02/17 09:33; Admin Dose 12.5 MG; Start 02/27/17 at 09:00 Clonidine (Catapres) 0.1 mg Q6H PRN PO ELEVATED BLOOD PRESSURE Last administered on 03/01/17 07:12; Admin Dose 0.1 MG; Start 02/26/17 at 23:30 Diagnostic Test (Pha) (Accu-Chek) 1 ea 02 XX ; Start 02/27/17 at 02:00 Miscellaneous Information 1 ea NOTE XX ; Start 02/26/17 at 23:30 Glucose (Glutose) 15 gm Q15M PRN PO DECREASED GLUCOSE; Start 02/26/17 at 23:30 Glucose (Glutose) 22.5 gm Q15M PRN PO DECREASED GLUCOSE; Start 02/26/17 at 23: 30 Dextrose (D50w Syringe) 25 ml Q15M PRN IV DECREASED GLUCOSE; Start 02/26/17 at 23:30 Dextrose (D50w Syringe) 50 ml Q15M PRN IV DECREASED GLUCOSE; Start 02/26/17 at 23:30 Glucagon (Glucagen) 1 mg Q15M PRN IM DECREASED GLUCOSE; Start 02/26/17 at 23:30 Glucose (Glutose) 15 gm Q15M PRN BUCCAL DECREASED GLUCOSE; Start 02/26/17 at 23 :30 Gabapentin (Neurontin) 300 mg Q8 PO Last administered on 03/02/17 05:52; Admin Dose 300 MG; Start 02/27/17 at 06:00 Mupirocin (Bactroban) 1 applic BID TOP Last administered on 03/02/17 09:34; Admin Dose 1 APPLIC; Start 02/28/17 at 21:00; Stop 03/07/17 at 20:59 Famotidine (Pepcid) 20 mg BID PO Last administered on 03/02/17 09:37; Admin Dose 20 MG; Start 02/28/17 at 21:00 BRITTON ARAMBULA DO Mar 02, 2017 12:26
[2017-03-02 15:42] LABS: MICROALBUMIN 126.7 mg/dL
[2017-03-02 20:00] VITALS: BP 148/87; RESP 18
[2017-03-02] MEDS: ATORVASTATIN 20 MG TAB PO SCH (20:28)
[2017-03-02] MEDS: SENNA TAB PO SCH (20:30)
[2017-03-03] MEDS: HYDROCODONE/APAP (5/325) TAB PO PRN ×6 (01:06→23:57)
[2017-03-03] MEDS: ACCUCHECK AT 2AM (Patients on SS coverage) XX SCH (02:00)
[2017-03-03] MEDS: GABAPENTIN 300 MG CAP PO SCH ×3 (05:00→21:00)
[2017-03-03 07:36] VITALS: BP 188/107; RESP 18
[2017-03-03] MEDS: Insulin NOVOLOG SS MILD Algorithm (SS with meals and bedtime) SC SCH ×5 (08:08→20:06)
[2017-03-03] MEDS: MUPIROCIN 2% 22 GM OINT TOP SCH ×2 (08:09→20:07)
[2017-03-03] MEDS: FAMOTIDINE 20 MG TAB PO SCH ×2 (08:10→20:00)
[2017-03-03] MEDS: ASPIRIN (EC) 325 MG TAB PO SCH (08:11)
[2017-03-03] MEDS: AMLODIPINE 10 MG TAB PO SCH (08:11)
[2017-03-03] MEDS: HYDROCHLOROTHIAZIDE 12.5 MG CAP PO SCH (08:11)
[2017-03-03] MEDS: AMIODARONE 200 MG TAB PO SCH ×2 (08:12→20:00)
[2017-03-03] MEDS: DOCUSATE SODIUM 100 MG CAP PO SCH ×2 (08:12→19:59)
--- NOTE | 2017-03-03 10:05 | PN ---
Date/Time of Note Date/Time of Note DATE: 03/03/17 TIME: 10:03 Assessment/Plan Lines/Catheters Urinary Cath still in place: No Assessment/Plan Chief Complaint/Hosp Course 1 acute CVA with right-sided hemiparesis. Plan is to continue current medical management continue aspirin continue statin therapy continue good blood pressure control. Continue physical therapy occupational therapy 2. Hypertension -Blood pressure remains elevated. Will increase hydrochlorothiazide to 25 mg daily., Continue current blood pressure medications -Monitor closely 3. 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 Patient with nephrotic range proteinuria -Urinalysis is bland. Patient has significant proteinuria on protein creatinine ratio. Albumin creatinine ratio spent -Renal ultrasound reviewed showed increased echogenicity consistent with CKD We will continue supportive care renally dose meds avoid nephrotoxic -QUIN inhibitor/ARB once renal function stable 4. Anemia monitor H&H levels 5 diabetes continue Accu-Cheks insulin sliding scale 6 mineral bone disorder will monitor calcium phosphorus levels 7 history of COPD. Continue to monitor continue medical management 8. GI DVT prophylaxis continue PPI aspirin sequential leg squeezers 9. History of arrhythmia. Patient is on amiodarone and Coreg. We will continue to monitor consider cardiology evaluation Problems: Subjective 24 Hr Interval Summary Free Text/Dictation Patient is noted to be hypertensive this morning. Blood pressure improved after receiving blood pressure medications. No other events noted. Exam/Review of Systems Vital Signs Vitals Vital Signs Date Time Temp Pulse Resp B/P Pulse Ox O2 Delivery O2 Flow Rate FiO2 03/03/17 07:36 98.2 66 18 188/107 100 03/01/17 08:44 Room Air Intake and Output 03/02/17 03/02/17 03/03/17 15:00 23:00 07:00 Intake Total 820 ml Output Total 940 ml 850 ml Balance -120 ml -850 ml Exam Generally patient is in no acute distress HEENT head is normocephalic pupils are reactive to light Heart is regular rate no gallops clicks Lungs show diminished breath sounds at the base Abdomen soft nontender palpation rebound guarding Extremities are negative for clubbing cyanosis no edema Dermatologically no rashes Musculoskeletal no joint effusion Neurologically patient has right-sided hemiparesis Results Result Diagram: 03/01/17 0630 03/01/17 0630 Results 24 hrs Laboratory Tests Test 03/02/17 12:04 03/02/17 17:18 03/02/17 20:25 03/03/17 07:58 Bedside Glucose 185 200 163 174 Medications Medications Current Medications Docusate Sodium (Colace) 100 mg BID PO Last administered on 03/03/17 08:12; Admin Dose 100 MG; Start 02/27/17 at 09:00 Senna (Senokot) 1 tab HS PO Last administered on 03/02/17 20:30; Admin Dose 1 TAB; Start 02/27/17 at 21:00 Bisacodyl (Dulcolax Supp) 10 mg DAILY PRN [place] CONSTIPATION; Start 02/26/17 at 23 :30 Magnesium Hydroxide (Milk Of Mag) 30 ml BID PRN PO CONSTIPATION; Start at 23:30 Lactulose (Enulose) 20 gm DAILY PRN PO CONSTIPATION; Start 02/26/17 at 23:30 Acetaminophen (Tylenol Tab) 650 mg Q4H PRN PO FEVER, H/A; MILD PAIN Last administered on 03/02/17 02:34; Admin Dose 650 MG; Start 02/26/17 at 23:30 Acetaminophen/ Hydrocodone Bitart ([place] (5/325)) 1 tab Q4H PRN PO MODERATE PAIN LEVEL 4-6; Start 02/26/17 at 23:30 Acetaminophen/ Hydrocodone Bitart ([place] (5/325)) 2 tab Q4H PRN PO SEVERE PAIN Last administered on 03/03/17 09:01; Admin Dose 2 TAB; Start 02/26/17 at 23:30 Amiodarone HCl (Cordarone) 200 mg BID PO Last administered on 03/03/17 08:12; Admin Dose 200 MG; Start 02/27/17 at 09:00 Amlodipine Besylate (Norvasc) 10 mg DAILY PO Last administered on 03/03/17 08: 11; Admin Dose 10 MG; Start 02/27/17 at 09:00 Atorvastatin Calcium (Lipitor) 20 mg DAILY@21 PO Last administered on 03/02/17 20:28; Admin Dose 20 MG; Start 02/27/17 at 21:00 Carvedilol (Coreg) 12.5 mg BID PO Last administered on 03/03/17 08:12; Admin Dose 12.5 MG; Start 02/27/17 at 09:00 Hydralazine HCl (Apresoline) 100 mg TID PO Last administered on 03/03/17 08:13 ; Admin Dose 100 MG; Start 02/27/17 at 09:00 Aspirin (Ecotrin) 325 mg DAILY PO Last administered on 03/03/17 08:11; Admin Dose 325 MG; Start 02/27/17 at 09:00 Hydrochlorothiazide (Hydrochlorothiazide) 12.5 mg DAILY PO Last administered on 03/03/17 08:11; Admin Dose 12.5 MG; Start 02/27/17 at 09:00 Clonidine (Catapres) 0.1 mg Q6H PRN PO ELEVATED BLOOD PRESSURE Last administered on 03/01/17 07:12; Admin Dose 0.1 MG; Start 02/26/17 at 23:30 Diagnostic Test (Pha) (Accu-Chek) 1 ea 02 XX ; Start 02/27/17 at 02:00 Miscellaneous Information 1 ea NOTE XX ; Start 02/26/17 at 23:30 Glucose (Glutose) 15 gm Q15M PRN PO DECREASED GLUCOSE; Start 02/26/17 at 23:30 Glucose (Glutose) 22.5 gm Q15M PRN PO DECREASED GLUCOSE; Start 02/26/17 at 23: 30 Dextrose (D50w Syringe) 25 ml Q15M PRN IV DECREASED GLUCOSE; Start 02/26/17 at 23:30 Dextrose (D50w Syringe) 50 ml Q15M PRN IV DECREASED GLUCOSE; Start 02/26/17 at 23:30 Glucagon (Glucagen) 1 mg Q15M PRN IM DECREASED GLUCOSE; Start 02/26/17 at 23:30 Glucose (Glutose) 15 gm Q15M PRN BUCCAL DECREASED GLUCOSE; Start 02/26/17 at 23 :30 Gabapentin (Neurontin) 300 mg Q8 PO Last administered on 03/03/17 05:00; Admin Dose 300 MG; Start 02/27/17 at 06:00 Mupirocin (Bactroban) 1 applic BID TOP Last administered on 03/03/17 08:09; Admin Dose 1 APPLIC; Start 02/28/17 at 21:00; Stop 03/07/17 at 20:59 Famotidine (Pepcid) 20 mg BID PO Last administered on 03/03/17 08:10; Admin Dose 20 MG; Start 02/28/17 at 21:00 BRITTON ARAMBULA DO Mar 03, 2017 10:05
--- NOTE | 2017-03-03 10:41 | CONS ---
Date/Time of Note Date/Time of Note DATE: 03/03/17 TIME: 10:41 Consult Date/Type/Reason Admit Date/Time Feb 26, 2017 at 20:05 Initial Consult Date 02/27/17 Type of Consultation: Rehabilitation Subjective Needs encouragement Objective Lungs clear anteriorly Moderate assist Vital Signs Date Time Temp Pulse Resp B/P Pulse Ox O2 Delivery O2 Flow Rate FiO2 03/03/17 07:36 98.2 66 18 188/107 100 03/01/17 08:44 Room Air Intake and Output 03/02/17 03/02/17 03/03/17 15:00 23:00 07:00 Intake Total 820 ml Output Total 940 ml 850 ml Balance -120 ml -850 ml Results/Medications Result Diagram: 03/01/1762903/01/17 0630 Results 24 hrs Laboratory Tests Test 03/02/17 12:04 03/02/17 17:18 03/02/17 20:25 03/03/17 07:58 Bedside Glucose 185 200 163 174 Medications Current Medications Docusate Sodium (Colace) 100 mg BID PO Last administered on 03/03/17 08:12; Admin Dose 100 MG; Start 02/27/17 at 09:00 Senna (Senokot) 1 tab HS PO Last administered on 03/02/17 20:30; Admin Dose 1 TAB; Start 02/27/17 at 21:00 Bisacodyl (Dulcolax Supp) [address] CONSTIPATION; Start 02/26/17 at 23 :30 Magnesium Hydroxide (Milk Of Mag) 30 ml BID PRN PO CONSTIPATION; Start at 23:30 Lactulose (Enulose) 20 gm DAILY PRN PO CONSTIPATION; Start 02/26/17 at 23:30 Acetaminophen (Tylenol Tab) 650 mg Q4H PRN PO FEVER, H/A; MILD PAIN Last administered on 03/02/17 02:34; Admin Dose 650 MG; Start 02/26/17 at 23:30 Acetaminophen/ Hydrocodone Bitart ([place] (5/325)) 1 tab Q4H PRN PO MODERATE PAIN LEVEL 4-6; Start 02/26/17 at 23:30 Acetaminophen/ Hydrocodone Bitart ([place] (5/325)) 2 tab Q4H PRN PO SEVERE PAIN Last administered on 03/03/17 09:01; Admin Dose 2 TAB; Start 02/26/17 at 23:30 Amiodarone HCl (Cordarone) 200 mg BID PO Last administered on 03/03/17 08:12; Admin Dose 200 MG; Start 02/27/17 at 09:00 Amlodipine Besylate (Norvasc) 10 mg DAILY PO Last administered on 03/03/17 08: 11; Admin Dose 10 MG; Start 02/27/17 at 09:00 Atorvastatin Calcium (Lipitor) 20 mg DAILY@21 PO Last administered on 03/02/17 20:28; Admin Dose 20 MG; Start 02/27/17 at 21:00 Carvedilol (Coreg) 12.5 mg BID PO Last administered on 03/03/17 08:12; Admin Dose 12.5 MG; Start 02/27/17 at 09:00 Hydralazine HCl (Apresoline) 100 mg TID PO Last administered on 03/03/17 08:13 ; Admin Dose 100 MG; Start 02/27/17 at 09:00 Aspirin (Ecotrin) 325 mg DAILY PO Last administered on 03/03/17 08:11; Admin Dose 325 MG; Start 02/27/17 at 09:00 Clonidine (Catapres) 0.1 mg Q6H PRN PO ELEVATED BLOOD PRESSURE Last administered on 03/01/17 07:12; Admin Dose 0.1 MG; Start 02/26/17 at 23:30 Diagnostic Test (Pha) (Accu-Chek) 1 ea 02 XX ; Start 02/27/17 at 02:00 Miscellaneous Information 1 ea NOTE XX ; Start 02/26/17 at 23:30 Glucose (Glutose) 15 gm Q15M PRN PO DECREASED GLUCOSE; Start 02/26/17 at 23:30 Glucose (Glutose) 22.5 gm Q15M PRN PO DECREASED GLUCOSE; Start 02/26/17 at 23: 30 Dextrose (D50w Syringe) 25 ml Q15M PRN IV DECREASED GLUCOSE; Start 02/26/17 at 23:30 Dextrose (D50w Syringe) 50 ml Q15M PRN IV DECREASED GLUCOSE; Start 02/26/17 at 23:30 Glucagon (Glucagen) 1 mg Q15M PRN IM DECREASED GLUCOSE; Start 02/26/17 at 23:30 Glucose (Glutose) 15 gm Q15M PRN BUCCAL DECREASED GLUCOSE; Start 02/26/17 at 23 :30 Gabapentin (Neurontin) 300 mg Q8 PO Last administered on 03/03/17 05:00; Admin Dose 300 MG; Start 02/27/17 at 06:00 Mupirocin (Bactroban) 1 applic BID TOP Last administered on 03/03/17 08:09; Admin Dose 1 APPLIC; Start 02/28/17 at 21:00; Stop 03/07/17 at 20:59 Famotidine (Pepcid) 20 mg BID PO Last administered on 03/03/17 08:10; Admin Dose 20 MG; Start 02/28/17 at 21:00 Hydrochlorothiazide (Hydrochlorothiazide) 25 mg DAILY PO ; Start 03/04/17 at 09: 00 Assessment/Plan Additional Assessment/Plan Rehabilitation- 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 Dysphagia-continue speech therapy Chronic Kidney Disease. Hyperlipidemia COPD Polysubstance abuse TAYLOR RON MD Mar 03, 2017 10:41 TAYLOR RON MD Mar 03, 2017 10:41
[2017-03-03] MEDS: SENNA TAB PO SCH (19:59)
[2017-03-03 20:00] VITALS: BP 149/86; RESP 18
[2017-03-03] MEDS: ATORVASTATIN 20 MG TAB PO SCH (20:01)
[2017-03-03] MEDS: PREGABALIN 75 MG CAP PO SCH ×2 (20:10→21:00)
[2017-03-04] MEDS: ACCUCHECK AT 2AM (Patients on SS coverage) XX SCH (02:00)
[2017-03-04] MEDS: GABAPENTIN 300 MG CAP PO SCH ×3 (06:42→21:43)
[2017-03-04] MEDS: HYDROCODONE/APAP (5/325) TAB PO PRN ×4 (06:42→18:37)
[2017-03-04 07:34] VITALS: BP 146/85; RESP 18
[2017-03-04 08:05] LABS: CALCIUM 9.4 mg/dl (8.4-10.2); CREATININE 1.54 mg/dl (0.61-1.24); MAGNESIUM 1.6 mg/dl (1.7-2.5); PHOSPHORUS 5.2 mg/dl (2.5-4.9); POTASSIUM 4.1 mmol/L (3.5-5.1)
[2017-03-04] MEDS: MUPIROCIN 2% 22 GM OINT TOP SCH ×2 (08:36→21:35)
[2017-03-04] MEDS: AMLODIPINE 10 MG TAB PO SCH (08:38)
[2017-03-04] MEDS: Insulin NOVOLOG SS MILD Algorithm (SS with meals and bedtime) SC SCH ×4 (08:39→21:00)
[2017-03-04] MEDS: HYDROCHLOROTHIAZIDE 25 MG TAB PO SCH (08:40)
[2017-03-04] MEDS: ASPIRIN (EC) 325 MG TAB PO SCH (08:40)
[2017-03-04] MEDS: PREGABALIN 75 MG CAP PO SCH ×2 (08:40→21:35)
[2017-03-04] MEDS: DOCUSATE SODIUM 100 MG CAP PO SCH ×2 (08:40→21:43)
[2017-03-04] MEDS: AMIODARONE 200 MG TAB PO SCH ×2 (08:40→21:34)
[2017-03-04] MEDS: FAMOTIDINE 20 MG TAB PO SCH ×2 (08:40→21:34)
--- NOTE | 2017-03-04 09:58 | PN ---
Date/Time of Note Date/Time of Note DATE: 03/04/17 TIME: 09:56 Assessment/Plan Lines/Catheters Urinary Cath still in place: No Assessment/Plan Chief Complaint/Hosp Course 1 acute CVA with right-sided hemiparesis. Plan is to continue current medical management continue aspirin continue statin therapy continue good blood pressure control. Continue physical therapy occupational therapy 2. Hypertension -Blood pressure improving. -Continue current blood pressure medications -Monitor closely 3. 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 Patient with nephrotic range proteinuria -Urinalysis is bland. Patient has significant proteinuria on protein creatinine ratio. Albumin creatinine ratio pending -Renal ultrasound reviewed showed increased echogenicity consistent with CKD We will continue supportive care renally dose meds avoid nephrotoxic -QUIN inhibitor/ARB once renal function stable 4. Anemia monitor H&H levels 5 diabetes continue Accu-Cheks insulin sliding scale 6 mineral bone disorder will monitor calcium phosphorus levels 7 history of COPD. Continue to monitor continue medical management 8. GI DVT prophylaxis continue PPI aspirin sequential leg squeezers 9. History of arrhythmia. Patient is on amiodarone and Coreg. We will continue to monitor consider cardiology evaluation Problems: Subjective 24 Hr Interval Summary Free Text/Dictation Patient stable. Blood pressure is stable. No other events noted overnight Exam/Review of Systems Vital Signs Vitals Vital Signs Date Time Temp Pulse Resp B/P Pulse Ox O2 Delivery O2 Flow Rate FiO2 03/04/17 07:34 98.0 61 18 146/85 96 03/01/17 08:44 Room Air Intake and Output 03/03/17 03/03/17 03/04/17 15:00 23:00 07:00 Intake Total 1000 ml 760 ml 120 ml Output Total 1100 ml 250 ml 1100 ml Balance -100 ml 510 ml -980 ml Exam Generally patient is in no acute distress HEENT head is normocephalic pupils are reactive to light Heart is regular rate no gallops clicks Lungs show diminished breath sounds at the base Abdomen soft nontender palpation rebound guarding Extremities are negative for clubbing cyanosis no edema Dermatologically no rashes Musculoskeletal no joint effusion Neurologically patient has right-sided hemiparesis Results Result Diagram: 03/01/17 0630 03/04/17 0610 Results 24 hrs Laboratory Tests Test 03/03/17 12:10 03/03/17 17:03 03/03/17 19:57 03/04/17 06:10 Bedside Glucose 181 138 181 Sodium Level 141 Potassium Level 4.1 Chloride Level 102 Carbon Dioxide Level 23 Anion Gap 20 H Blood Urea Nitrogen 43 H Creatinine 1.54 H Glucose Level 139 Calcium Level 9.4 Phosphorus Level 5.2 H Magnesium Level 1.6 L Test 03/04/17 08:22 Bedside Glucose 173 Medications Medications Current Medications Docusate Sodium (Colace) 100 mg BID PO Last administered on 03/04/17 08:40; Admin Dose 100 MG; Start 02/27/17 at 09:00 Senna (Senokot) 1 tab HS PO Last administered on 03/03/17 19:59; Admin Dose 1 TAB; Start 02/27/17 at 21:00 Bisacodyl (Dulcolax Supp) 10 mg DAILY PRN [place] CONSTIPATION; Start 02/26/17 at 23 :30 Magnesium Hydroxide (Milk Of Mag) 30 ml BID PRN PO CONSTIPATION; Start at 23:30 Lactulose (Enulose) 20 gm DAILY PRN PO CONSTIPATION; Start 02/26/17 at 23:30 Acetaminophen (Tylenol Tab) 650 mg Q4H PRN PO FEVER, H/A; MILD PAIN Last administered on 03/02/17 02:34; Admin Dose 650 MG; Start 02/26/17 at 23:30 Acetaminophen/ Hydrocodone Bitart ([place] (5/325)) 1 tab Q4H PRN PO MODERATE PAIN LEVEL 4-6; Start 02/26/17 at 23:30 Acetaminophen/ Hydrocodone Bitart ([place] (5/325)) 2 tab Q4H PRN PO SEVERE PAIN Last administered on 03/04/17 06:42; Admin Dose 2 TAB; Start 02/26/17 at 23:30 Amiodarone HCl (Cordarone) 200 mg BID PO Last administered on 03/04/17 08:40; Admin Dose 200 MG; Start 02/27/17 at 09:00 Amlodipine Besylate (Norvasc) 10 mg DAILY PO Last administered on 03/04/17 08: 38; Admin Dose 10 MG; Start 02/27/17 at 09:00 Atorvastatin Calcium (Lipitor) 20 mg DAILY@21 PO Last administered on 03/03/17 20:01; Admin Dose 20 MG; Start 02/27/17 at 21:00 Carvedilol (Coreg) 12.5 mg BID PO Last administered on 03/04/17 08:37; Admin Dose 12.5 MG; Start 02/27/17 at 09:00 Hydralazine HCl (Apresoline) 100 mg TID PO Last administered on 03/04/17 08:37 ; Admin Dose 100 MG; Start 02/27/17 at 09:00 Aspirin (Ecotrin) 325 mg DAILY PO Last administered on 03/04/17 08:40; Admin Dose 325 MG; Start 02/27/17 at 09:00 Clonidine (Catapres) 0.1 mg Q6H PRN PO ELEVATED BLOOD PRESSURE Last administered on 03/01/17 07:12; Admin Dose 0.1 MG; Start 02/26/17 at 23:30 Diagnostic Test (Pha) (Accu-Chek) 1 ea 02 XX ; Start 02/27/17 at 02:00 Miscellaneous Information 1 ea NOTE XX ; Start 02/26/17 at 23:30 Glucose (Glutose) 15 gm Q15M PRN PO DECREASED GLUCOSE; Start 02/26/17 at 23:30 Glucose (Glutose) 22.5 gm Q15M PRN PO DECREASED GLUCOSE; Start 02/26/17 at 23: 30 Dextrose (D50w Syringe) 25 ml Q15M PRN IV DECREASED GLUCOSE; Start 02/26/17 at 23:30 Dextrose (D50w Syringe) 50 ml Q15M PRN IV DECREASED GLUCOSE; Start 02/26/17 at 23:30 Glucagon (Glucagen) 1 mg Q15M PRN IM DECREASED GLUCOSE; Start 02/26/17 at 23:30 Glucose (Glutose) 15 gm Q15M PRN BUCCAL DECREASED GLUCOSE; Start 02/26/17 at 23 :30 Gabapentin (Neurontin) 300 mg Q8 PO Last administered on 03/04/17 06:42; Admin Dose 300 MG; Start 02/27/17 at 06:00 Mupirocin (Bactroban) 1 applic BID TOP Last administered on 03/04/17 08:36; Admin Dose 1 APPLIC; Start 02/28/17 at 21:00; Stop 03/07/17 at 20:59 Famotidine (Pepcid) 20 mg BID PO Last administered on 03/04/17 08:40; Admin Dose 20 MG; Start 02/28/17 at 21:00 Hydrochlorothiazide (Hydrochlorothiazide) 25 mg DAILY PO Last administered on 08:40; Admin Dose 25 MG; Start 03/04/17 at 09:00 Pregabalin (Lyrica) 75 mg BID PO Last administered on 03/04/17 08:40; Admin Dose 75 MG; Start 03/03/17 at 21:00 BIRTTON ARAMBULA DO Mar 04, 2017 09:58
[2017-03-04] MEDS ORDERED: MAGNESIUM OXIDE 400 MG TAB PO SCH (10:00)
--- NOTE | 2017-03-04 12:03 | CONS ---
Date/Time of Note Date/Time of Note DATE: 03/04/17 TIME: 12:01 Consult Date/Type/Reason Admit Date/Time Feb 26, 2017 at 20:05 Initial Consult Date 02/27/17 Type of Consultation: Rehabilitation Subjective Feeling much better today Objective Lungs clear anteriorly Minimal to moderate assist Vital Signs Date Time Temp Pulse Resp B/P Pulse Ox O2 Delivery O2 Flow Rate FiO2 03/04/17 07:34 98.0 61 18 146/85 96 03/01/17 08:44 Room Air Intake and Output 03/03/17 03/03/17 03/04/17 14:59 22:59 06:59 Intake Total 1000 ml 760 ml 120 ml Output Total 1100 ml 250 ml 1100 ml Balance -100 ml 510 ml -980 ml Results/Medications Result Diagram: 03/01/17 0630 03/04/17 0610 Results 24 hrs Laboratory Tests Test 03/03/17 12:10 03/03/17 17:03 03/03/17 19:57 03/04/17 06:10 Bedside Glucose 181 138 181 Sodium Level 141 Potassium Level 4.1 Chloride Level 102 Carbon Dioxide Level 23 Anion Gap 20 H Blood Urea Nitrogen 43 H Creatinine 1.54 H Glucose Level 139 Calcium Level 9.4 Phosphorus Level 5.2 H Magnesium Level 1.6 L Test 03/04/17 08:22 03/04/17 11:43 Bedside Glucose 173 155 Medications Current Medications Docusate Sodium (Colace) 100 mg BID PO Last administered on 03/04/17 08:40; Admin Dose 100 MG; Start 02/27/17 at 09:00 Senna (Senokot) 1 tab HS PO Last administered on 03/03/17 19:59; Admin Dose 1 TAB; Start 02/27/17 at 21:00 Bisacodyl (Dulcolax Supp) 10 mg DAILY PRN [place] CONSTIPATION; Start 02/26/17 at 23 :30 Magnesium Hydroxide (Milk Of Mag) 30 ml BID PRN PO CONSTIPATION; Start at 23:30 Lactulose (Enulose) 20 gm DAILY PRN PO CONSTIPATION; Start 02/26/17 at 23:30 Acetaminophen (Tylenol Tab) 650 mg Q4H PRN PO FEVER, H/A; MILD PAIN Last administered on 03/02/17 02:34; Admin Dose 650 MG; Start 02/26/17 at 23:30 Acetaminophen/ Hydrocodone Bitart ([place] (5/325)) 1 tab Q4H PRN PO MODERATE PAIN LEVEL 4-6; Start 02/26/17 at 23:30 Acetaminophen/ Hydrocodone Bitart ([place] (5/325)) 2 tab Q4H PRN PO SEVERE PAIN Last administered on 03/04/17 10:31; Admin Dose 2 TAB; Start 02/26/17 at 23:30 Amiodarone HCl (Cordarone) 200 mg BID PO Last administered on 03/04/17 08:40; Admin Dose 200 MG; Start 02/27/17 at 09:00 Amlodipine Besylate (Norvasc) 10 mg DAILY PO Last administered on 03/04/17 08: 38; Admin Dose 10 MG; Start 02/27/17 at 09:00 Atorvastatin Calcium (Lipitor) 20 mg DAILY@21 PO Last administered on 03/03/17 20:01; Admin Dose 20 MG; Start 02/27/17 at 21:00 Carvedilol (Coreg) 12.5 mg BID PO Last administered on 03/04/17 08:37; Admin Dose 12.5 MG; Start 02/27/17 at 09:00 Hydralazine HCl (Apresoline) 100 mg TID PO Last administered on 03/04/17 08:37 ; Admin Dose 100 MG; Start 02/27/17 at 09:00 Aspirin (Ecotrin) 325 mg DAILY PO Last administered on 03/04/17 08:40; Admin Dose 325 MG; Start 02/27/17 at 09:00 Clonidine (Catapres) 0.1 mg Q6H PRN PO ELEVATED BLOOD PRESSURE Last administered on 03/01/17 07:12; Admin Dose 0.1 MG; Start 02/26/17 at 23:30 Diagnostic Test (Pha) (Accu-Chek) 1 ea 02 XX ; Start 02/27/17 at 02:00 Miscellaneous Information 1 ea NOTE XX ; Start 02/26/17 at 23:30 Glucose (Glutose) 15 gm Q15M PRN PO DECREASED GLUCOSE; Start 02/26/17 at 23:30 Glucose (Glutose) 22.5 gm Q15M PRN PO DECREASED GLUCOSE; Start 02/26/17 at 23: 30 Dextrose (D50w Syringe) 25 ml Q15M PRN IV DECREASED GLUCOSE; Start 02/26/17 at 23:30 Dextrose (D50w Syringe) 50 ml Q15M PRN IV DECREASED GLUCOSE; Start 02/26/17 at 23:30 Glucagon (Glucagen) 1 mg Q15M PRN IM DECREASED GLUCOSE; Start 02/26/17 at 23:30 Glucose (Glutose) 15 gm Q15M PRN BUCCAL DECREASED GLUCOSE; Start 02/26/17 at 23 :30 Gabapentin (Neurontin) 300 mg Q8 PO Last administered on 03/04/17 06:42; Admin Dose 300 MG; Start 02/27/17 at 06:00 Mupirocin (Bactroban) 1 applic BID TOP Last administered on 03/04/17 08:36; Admin Dose 1 APPLIC; Start 02/28/17 at 21:00; Stop 03/07/17 at 20:59 Famotidine (Pepcid) 20 mg BID PO Last administered on 03/04/17 08:40; Admin Dose 20 MG; Start 02/28/17 at 21:00 Hydrochlorothiazide (Hydrochlorothiazide) 25 mg DAILY PO Last administered on 08:40; Admin Dose 25 MG; Start 03/04/17 at 09:00 Pregabalin (Lyrica) 75 mg BID PO Last administered on 03/04/17 08:40; Admin Dose 75 MG; Start 03/03/17 at 21:00 Magnesium Oxide (Mag-Ox 400) 400 mg ONCE PO Last administered on 03/04/17 10:31 ; Admin Dose 400 MG; Start 03/04/17 at 10:00; Stop 03/04/17 at 23:00 Assessment/Plan Additional Assessment/Plan Rehabilitation- Left pontine infarct CVA with right sided weakness Continue interdisciplinary treatment plan. Patient is pleased with his speech progress Diabetes Mellitus type 2-monitor blood sugar Diabetic Polyneuropathy. Dysphagia-continue speech therapy Chronic Kidney Disease. Hyperlipidemia COPD Polysubstance abuse TAYLOR RON MD Mar 04, 2017 12:02
[2017-03-04 20:10] VITALS: BP 150/91; RESP 18
[2017-03-04] MEDS: ATORVASTATIN 20 MG TAB PO SCH (21:34)
[2017-03-04] MEDS: SENNA TAB PO SCH (21:34)
[2017-03-05] MEDS: HYDROCODONE/APAP (5/325) TAB PO PRN ×6 (00:28→22:12)
[2017-03-05] MEDS: ACCUCHECK AT 2AM (Patients on SS coverage) XX SCH (02:00)
[2017-03-05] MEDS: GABAPENTIN 300 MG CAP PO SCH ×3 (05:35→21:00)
[2017-03-05 07:24] LABS: CALCIUM 9.4 mg/dl (8.4-10.2); CREATININE 1.45 mg/dl (0.61-1.24); MAGNESIUM 1.6 mg/dl (1.7-2.5); POTASSIUM 4.7 mmol/L (3.5-5.1)
[2017-03-05 07:30] VITALS: BP 143/81; RESP 18
[2017-03-05] MEDS: Insulin NOVOLOG SS MILD Algorithm (SS with meals and bedtime) SC SCH ×4 (08:17→21:00)
[2017-03-05] MEDS: ASPIRIN (EC) 325 MG TAB PO SCH (08:18)
[2017-03-05] MEDS: AMIODARONE 200 MG TAB PO SCH ×2 (08:19→20:59)
[2017-03-05] MEDS: PREGABALIN 75 MG CAP PO SCH ×2 (08:19→20:59)
[2017-03-05] MEDS: AMLODIPINE 10 MG TAB PO SCH (08:20)
[2017-03-05] MEDS: FAMOTIDINE 20 MG TAB PO SCH ×2 (08:20→20:58)
[2017-03-05] MEDS: DOCUSATE SODIUM 100 MG CAP PO SCH ×2 (08:20→20:58)
[2017-03-05] MEDS: HYDROCHLOROTHIAZIDE 25 MG TAB PO SCH (08:20)
--- NOTE | 2017-03-05 08:22 | CONS ---
Date/Time of Note Date/Time of Note DATE: 03/05/17 TIME: 08:19 Consult Date/Type/Reason Admit Date/Time Feb 26, 2017 at 20:05 Initial Consult Date 02/27/17 Type of Consultation: Rehabilitation Subjective Overall significant improvement Objective Lungs clear anteriorly Abdomen soft Contact-guard min assist ambulation 40 feet Vital Signs Date Time Temp Pulse Resp B/P Pulse Ox O2 Delivery O2 Flow Rate FiO2 03/04/17 20:10 97.9 65 18 150/91 97 03/01/17 08:44 Room Air Intake and Output 03/04/17 03/04/17 03/05/17 15:00 23:00 07:00 Intake Total 1000 ml 400 ml 1100 ml Output Total 450 ml 550 ml 900 ml Balance 550 ml -150 ml 200 ml Results/Medications Result Diagram: 03/01/17 0630 03/05/17 0625 Results 24 hrs Laboratory Tests Test 03/04/17 08:22 03/04/17 11:43 03/04/17 17:03 03/04/17 21:37 Bedside Glucose 173 155 150 163 Test 03/05/17 06:25 03/05/17 08:06 Sodium Level 138 Potassium Level 4.7 Chloride Level 102 Carbon Dioxide Level 25 Anion Gap 16 Blood Urea Nitrogen 44 H Creatinine 1.45 H Glucose Level 232 H Calcium Level 9.4 Phosphorus Level 5.0 H Magnesium Level 1.6 L Bedside Glucose 224 H Medications Current Medications Docusate Sodium (Colace) 100 mg BID PO Last administered on 03/04/17 21:43; Admin Dose 100 MG; Start 02/27/17 at 09:00 Senna (Senokot) 1 tab HS PO Last administered on 03/04/17 21:34; Admin Dose 1 TAB; Start 02/27/17 at 21:00 Bisacodyl (Dulcolax Supp) 10 mg DAILY PRN [place] CONSTIPATION; Start 02/26/17 at 23 :30 Magnesium Hydroxide (Milk Of Mag) 30 ml BID PRN PO CONSTIPATION; Start at 23:30 Lactulose (Enulose) 20 gm DAILY PRN PO CONSTIPATION; Start 02/26/17 at 23:30 Acetaminophen (Tylenol Tab) 650 mg Q4H PRN PO FEVER, H/A; MILD PAIN Last administered on 03/02/17 02:34; Admin Dose 650 MG; Start 02/26/17 at 23:30 Acetaminophen/ Hydrocodone Bitart ([place] (5/325)) 1 tab Q4H PRN PO MODERATE PAIN LEVEL 4-6; Start 02/26/17 at 23:30 Acetaminophen/ Hydrocodone Bitart ([place] (5/325)) 2 tab Q4H PRN PO SEVERE PAIN Last administered on 03/05/17 05:36; Admin Dose 2 TAB; Start 02/26/17 at 23:30 Amiodarone HCl (Cordarone) 200 mg BID PO Last administered on 03/04/17 21:34; Admin Dose 200 MG; Start 02/27/17 at 09:00 Amlodipine Besylate (Norvasc) 10 mg DAILY PO Last administered on 03/04/17 08: 38; Admin Dose 10 MG; Start 02/27/17 at 09:00 Atorvastatin Calcium (Lipitor) 20 mg DAILY@21 PO Last administered on 03/04/17 21:34; Admin Dose 20 MG; Start 02/27/17 at 21:00 Carvedilol (Coreg) 12.5 mg BID PO Last administered on 03/04/17 21:35; Admin Dose 12.5 MG; Start 02/27/17 at 09:00 Hydralazine HCl (Apresoline) 100 mg TID PO Last administered on 03/04/17 21:34 ; Admin Dose 100 MG; Start 02/27/17 at 09:00 Aspirin (Ecotrin) 325 mg DAILY PO Last administered on 03/04/17 08:40; Admin Dose 325 MG; Start 02/27/17 at 09:00 Clonidine (Catapres) 0.1 mg Q6H PRN PO ELEVATED BLOOD PRESSURE Last administered on 03/01/17 07:12; Admin Dose 0.1 MG; Start 02/26/17 at 23:30 Diagnostic Test (Pha) (Accu-Chek) 1 ea 02 XX ; Start 02/27/17 at 02:00 Miscellaneous Information 1 ea NOTE XX ; Start 02/26/17 at 23:30 Glucose (Glutose) 15 gm Q15M PRN PO DECREASED GLUCOSE; Start 02/26/17 at 23:30 Glucose (Glutose) 22.5 gm Q15M PRN PO DECREASED GLUCOSE; Start 02/26/17 at 23: 30 Dextrose (D50w Syringe) 25 ml Q15M PRN IV DECREASED GLUCOSE; Start 02/26/17 at 23:30 Dextrose (D50w Syringe) 50 ml Q15M PRN IV DECREASED GLUCOSE; Start 02/26/17 at 23:30 Glucagon (Glucagen) 1 mg Q15M PRN IM DECREASED GLUCOSE; Start 02/26/17 at 23:30 Glucose (Glutose) 15 gm Q15M PRN BUCCAL DECREASED GLUCOSE; Start 02/26/17 at 23 :30 Gabapentin (Neurontin) 300 mg Q8 PO Last administered on 03/05/17 05:35; Admin Dose 300 MG; Start 02/27/17 at 06:00 Mupirocin (Bactroban) 1 applic BID TOP Last administered on 03/04/17 21:35; Admin Dose 1 APPLIC; Start 02/28/17 at 21:00; Stop 03/07/17 at 20:59 Famotidine (Pepcid) 20 mg BID PO Last administered on 03/04/17 21:34; Admin Dose 20 MG; Start 02/28/17 at 21:00 Hydrochlorothiazide (Hydrochlorothiazide) 25 mg DAILY PO Last administered on 08:40; Admin Dose 25 MG; Start 03/04/17 at 09:00 Pregabalin (Lyrica) 75 mg BID PO Last administered on 03/04/17 21:35; Admin Dose 75 MG; Start 03/03/17 at 21:00 Assessment/Plan Additional Assessment/Plan Rehabilitation- Left pontine infarct CVA with right sided weakness Overall significant gains. Patient's affect improved with improved functional levels. Patient with decreased frustration with regards to communication skills Diabetes Mellitus type 2-under good control Diabetic Polyneuropathy. Dysphagia-improving Chronic Kidney Disease. Hyperlipidemia COPD Polysubstance abuse Functional Impact of comorbidity: Patient's aphasia had been causing significant frustration for the patient, and this frustration was impacting functional activities. Patient now with improving communication skills, and decreased frustration, with significant improvements in self-care mobility. TAYLOR RON MD Mar 05, 2017 08:22
[2017-03-05] MEDS: MUPIROCIN 2% 22 GM OINT TOP SCH ×2 (08:23→21:04)
[2017-03-05] MEDS ORDERED: MAGNESIUM OXIDE 400 MG TAB PO ONE (11:00)
[2017-03-05] MEDS: ACETAMINOPHEN 325 MG TAB PO PRN (11:49)
[2017-03-05 19:33] VITALS: BP 144/86; RESP 19
[2017-03-05] MEDS: ATORVASTATIN 20 MG TAB PO SCH (20:58)
[2017-03-05] MEDS: SENNA TAB PO SCH (20:58)
[2017-03-06] MEDS: ACCUCHECK AT 2AM (Patients on SS coverage) XX SCH (02:15)
[2017-03-06] MEDS: HYDROCODONE/APAP (5/325) TAB PO PRN ×5 (04:27→18:58)
[2017-03-06] MEDS: GABAPENTIN 300 MG CAP PO SCH ×3 (06:17→20:53)
[2017-03-06 07:39] VITALS: BP 154/85; RESP 18
[2017-03-06] MEDS: Insulin NOVOLOG SS MILD Algorithm (SS with meals and bedtime) SC SCH ×4 (08:06→20:51)
[2017-03-06] MEDS: AMLODIPINE 10 MG TAB PO SCH (08:07)
[2017-03-06] MEDS: FAMOTIDINE 20 MG TAB PO SCH ×2 (08:08→20:44)
[2017-03-06] MEDS: AMIODARONE 200 MG TAB PO SCH ×2 (08:08→20:45)
[2017-03-06] MEDS: DOCUSATE SODIUM 100 MG CAP PO SCH ×2 (08:08→20:45)
[2017-03-06] MEDS: ASPIRIN (EC) 325 MG TAB PO SCH (08:08)
[2017-03-06] MEDS: PREGABALIN 75 MG CAP PO SCH ×2 (08:08→20:44)
[2017-03-06] MEDS: HYDROCHLOROTHIAZIDE 25 MG TAB PO SCH (08:09)
[2017-03-06] MEDS: MUPIROCIN 2% 22 GM OINT TOP SCH ×2 (08:10→21:00)
--- NOTE | 2017-03-06 10:38 | PN ---
Date/Time of Note Date/Time of Note DATE: 03/06/17 TIME: 10:37 Assessment/Plan Lines/Catheters Urinary Cath still in place: No Assessment/Plan Chief Complaint/Hosp Course 1 acute CVA with right-sided hemiparesis. -Slowly improving Plan is to continue current medical management continue aspirin continue statin therapy continue good blood pressure control. Continue physical therapy occupational therapy 2. Hypertension -Blood pressure improving. -Continue current blood pressure medications -Monitor closely 3. 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 Patient with nephrotic range proteinuria -Urinalysis is bland. Patient has significant proteinuria on protein creatinine ratio. Albumin creatinine ratio pending -Renal ultrasound reviewed showed increased echogenicity consistent with CKD We will continue supportive care renally dose meds avoid nephrotoxic -QUIN inhibitor/ARB once renal function stable 4. Anemia monitor H&H levels 5 diabetes continue Accu-Cheks insulin sliding scale 6 mineral bone disorder will monitor calcium phosphorus levels 7 history of COPD. Continue to monitor continue medical management 8. GI DVT prophylaxis continue PPI aspirin sequential leg squeezers 9. History of arrhythmia. Patient is on amiodarone and Coreg. We will continue to monitor consider cardiology evaluation Problems: Subjective 24 Hr Interval Summary Free Text/Dictation Patient stable no events overnight Exam/Review of Systems Vital Signs Vitals Vital Signs Date Time Temp Pulse Resp B/P Pulse Ox O2 Delivery O2 Flow Rate FiO2 03/06/17 07:39 98.0 70 18 154/85 96 Intake and Output 03/05/17 03/05/17 03/06/17 15:00 23:00 07:00 Intake Total 1040 ml 500 ml Output Total 1 ml 1300 ml Balance 1039 ml -800 ml Exam Generally patient is in no acute distress HEENT head is normocephalic pupils are reactive to light Heart is regular rate no gallops clicks Lungs show diminished breath sounds at the base Abdomen soft nontender palpation rebound guarding Extremities are negative for clubbing cyanosis no edema Dermatologically no rashes Musculoskeletal no joint effusion Neurologically patient has right-sided hemiparesis Results Result Diagram: 03/05/17 0625 Results 24 hrs Laboratory Tests Test 03/05/17 12:02 03/05/17 17:28 03/05/17 20:56 03/06/17 07:51 Bedside Glucose 178 130 135 147 Medications Medications Current Medications Docusate Sodium (Colace) 100 mg BID PO Last administered on 03/06/17 08:08; Admin Dose 100 MG; Start 02/27/17 at 09:00 Senna (Senokot) 1 tab HS PO Last administered on 03/05/17 20:58; Admin Dose 1 TAB; Start 02/27/17 at 21:00 Bisacodyl (Dulcolax Supp) 10 mg DAILY PRN [place] CONSTIPATION; Start 02/26/17 at 23 :30 Magnesium Hydroxide (Milk Of Mag) 30 ml BID PRN [place] CONSTIPATION; Start at 23:30 Lactulose (Enulose) 20 gm DAILY PRN PO CONSTIPATION; Start 02/26/17 at 23:30 Acetaminophen (Tylenol Tab) 650 mg Q4H PRN PO FEVER, H/A; MILD PAIN Last administered on 03/05/17 11:49; Admin Dose 650 MG; Start 02/26/17 at 23:30 Acetaminophen/ Hydrocodone Bitart ([place] (5/325)) 1 tab Q4H PRN PO MODERATE PAIN LEVEL 4-6; Start 02/26/17 at 23:30 Acetaminophen/ Hydrocodone Bitart ([place] (5/325)) 2 tab Q4H PRN PO SEVERE PAIN Last administered on 03/06/17 08:07; Admin Dose 2 TAB; Start 02/26/17 at 23:30 Amiodarone HCl (Cordarone) 200 mg BID PO Last administered on 03/06/17 08:08; Admin Dose 200 MG; Start 02/27/17 at 09:00 Amlodipine Besylate (Norvasc) 10 mg DAILY PO Last administered on 03/06/17 08: 07; Admin Dose 10 MG; Start 02/27/17 at 09:00 Atorvastatin Calcium (Lipitor) 20 mg DAILY@21 PO Last administered on 03/05/17 20:58; Admin Dose 20 MG; Start 02/27/17 at 21:00 Carvedilol (Coreg) 12.5 mg BID PO Last administered on 03/06/17 08:09; Admin Dose 12.5 MG; Start 02/27/17 at 09:00 Hydralazine HCl (Apresoline) 100 mg TID PO Last administered on 03/06/17 08:08 ; Admin Dose 100 MG; Start 02/27/17 at 09:00 Aspirin (Ecotrin) 325 mg DAILY PO Last administered on 03/06/17 08:08; Admin Dose 325 MG; Start 02/27/17 at 09:00 Clonidine (Catapres) 0.1 mg Q6H PRN PO ELEVATED BLOOD PRESSURE Last administered on 03/01/17 07:12; Admin Dose 0.1 MG; Start 02/26/17 at 23:30 Diagnostic Test (Pha) (Accu-Chek) 1 ea 02 XX ; Start 02/27/17 at 02:00 Miscellaneous Information 1 ea NOTE XX ; Start 02/26/17 at 23:30 Glucose (Glutose) 15 gm Q15M PRN PO DECREASED GLUCOSE; Start 02/26/17 at 23:30 Glucose (Glutose) 22.5 gm Q15M PRN PO DECREASED GLUCOSE; Start 02/26/17 at 23: 30 Dextrose (D50w Syringe) 25 ml Q15M PRN IV DECREASED GLUCOSE; Start 02/26/17 at 23:30 Dextrose (D50w Syringe) 50 ml Q15M PRN IV DECREASED GLUCOSE; Start 02/26/17 at 23:30 Glucagon (Glucagen) 1 mg Q15M PRN IM DECREASED GLUCOSE; Start 02/26/17 at 23:30 Glucose (Glutose) 15 gm Q15M PRN BUCCAL DECREASED GLUCOSE; Start 02/26/17 at 23 :30 Gabapentin (Neurontin) 300 mg Q8 PO Last administered on 03/06/17 06:17; Admin Dose 300 MG; Start 02/27/17 at 06:00 Mupirocin (Bactroban) 1 applic BID TOP Last administered on 03/06/17 08:10; Admin Dose 1 APPLIC; Start 02/28/17 at 21:00; Stop 03/07/17 at 20:59 Famotidine (Pepcid) 20 mg BID PO Last administered on 03/06/17 08:08; Admin Dose 20 MG; Start 02/28/17 at 21:00 Hydrochlorothiazide (Hydrochlorothiazide) 25 mg DAILY PO Last administered on 08:09; Admin Dose 25 MG; Start 03/04/17 at 09:00 Pregabalin (Lyrica) 75 mg BID PO Last administered on 03/06/17 08:08; Admin Dose 75 MG; Start 03/03/17 at 21:00 BRITTON ARAMBULA DO Mar 06, 2017 10:38
--- NOTE | 2017-03-06 11:03 | CONS ---
Date/Time of Note Date/Time of Note DATE: 03/06/17 TIME: 11:02 Consult Date/Type/Reason Admit Date/Time Feb 26, 2017 at 20:05 Initial Consult Date 02/27/17 Type of Consultation: Rehabilitation Subjective Motivated actively participating Objective Lungs clear anteriorly Abdomen soft Min assist ambulation Vital Signs Date Time Temp Pulse Resp B/P Pulse Ox O2 Delivery O2 Flow Rate FiO2 03/06/17 07:39 98.0 70 18 154/85 96 Intake and Output 03/05/17 03/05/17 03/06/17 15:00 23:00 07:00 Intake Total 1040 ml 500 ml Output Total 1 ml 1300 ml Balance 1039 ml -800 ml Results/Medications Result Diagram: 03/05/17 0625 Results 24 hrs Laboratory Tests Test 03/05/17 12:02 03/05/17 17:28 03/05/17 20:56 03/06/17 07:51 Bedside Glucose 178 130 135 147 Medications Current Medications Docusate Sodium (Colace) 100 mg BID PO Last administered on 03/06/17 08:08; Admin Dose 100 MG; Start 02/27/17 at 09:00 Senna (Senokot) 1 tab HS PO Last administered on 03/05/17 20:58; Admin Dose 1 TAB; Start 02/27/17 at 21:00 Bisacodyl (Dulcolax Supp) 10 mg DAILY PRN [place] CONSTIPATION; Start 02/26/17 at 23 :30 Magnesium Hydroxide (Milk Of Mag) 30 ml BID PRN PO CONSTIPATION; Start at 23:30 Lactulose (Enulose) 20 gm DAILY PRN PO CONSTIPATION; Start 02/26/17 at 23:30 Acetaminophen (Tylenol Tab) 650 mg Q4H PRN PO FEVER, H/A; MILD PAIN Last administered on 03/05/17 11:49; Admin Dose 650 MG; Start 02/26/17 at 23:30 Acetaminophen/ Hydrocodone Bitart ([place] (5/325)) 1 tab Q4H PRN PO MODERATE PAIN LEVEL 4-6; Start 02/26/17 at 23:30 Acetaminophen/ Hydrocodone Bitart ([place] (5/325)) 2 tab Q4H PRN PO SEVERE PAIN Last administered on 03/06/17 08:07; Admin Dose 2 TAB; Start 02/26/17 at 23:30 Amiodarone HCl (Cordarone) 200 mg BID PO Last administered on 03/06/17 08:08; Admin Dose 200 MG; Start 02/27/17 at 09:00 Amlodipine Besylate (Norvasc) 10 mg DAILY PO Last administered on 03/06/17 08: 07; Admin Dose 10 MG; Start 02/27/17 at 09:00 Atorvastatin Calcium (Lipitor) 20 mg DAILY@21 PO Last administered on 03/05/17 20:58; Admin Dose 20 MG; Start 02/27/17 at 21:00 Carvedilol (Coreg) 12.5 mg BID PO Last administered on 03/06/17 08:09; Admin Dose 12.5 MG; Start 02/27/17 at 09:00 Hydralazine HCl (Apresoline) 100 mg TID PO Last administered on 03/06/17 08:08 ; Admin Dose 100 MG; Start 02/27/17 at 09:00 Aspirin (Ecotrin) 325 mg DAILY PO Last administered on 03/06/17 08:08; Admin Dose 325 MG; Start 02/27/17 at 09:00 Clonidine (Catapres) 0.1 mg Q6H PRN PO ELEVATED BLOOD PRESSURE Last administered on 03/01/17 07:12; Admin Dose 0.1 MG; Start 02/26/17 at 23:30 Diagnostic Test (Pha) (Accu-Chek) 1 ea 02 XX ; Start 02/27/17 at 02:00 Miscellaneous Information 1 ea NOTE XX ; Start 02/26/17 at 23:30 Glucose (Glutose) 15 gm Q15M PRN PO DECREASED GLUCOSE; Start 02/26/17 at 23:30 Glucose (Glutose) 22.5 gm Q15M PRN PO DECREASED GLUCOSE; Start 02/26/17 at 23: 30 Dextrose (D50w Syringe) 25 ml Q15M PRN IV DECREASED GLUCOSE; Start 02/26/17 at 23:30 Dextrose (D50w Syringe) 50 ml Q15M PRN IV DECREASED GLUCOSE; Start 02/26/17 at 23:30 Glucagon (Glucagen) 1 mg Q15M PRN IM DECREASED GLUCOSE; Start 02/26/17 at 23:30 Glucose (Glutose) 15 gm Q15M PRN BUCCAL DECREASED GLUCOSE; Start 02/26/17 at 23 :30 Gabapentin (Neurontin) 300 mg Q8 PO Last administered on 03/06/17 06:17; Admin Dose 300 MG; Start 02/27/17 at 06:00 Mupirocin (Bactroban) 1 applic BID TOP Last administered on 03/06/17 08:10; Admin Dose 1 APPLIC; Start 02/28/17 at 21:00; Stop 03/07/17 at 20:59 Famotidine (Pepcid) 20 mg BID PO Last administered on 03/06/17 08:08; Admin Dose 20 MG; Start 02/28/17 at 21:00 Hydrochlorothiazide (Hydrochlorothiazide) 25 mg DAILY PO Last administered on 08:09; Admin Dose 25 MG; Start 03/04/17 at 09:00 Pregabalin (Lyrica) 75 mg BID PO Last administered on 03/06/17 08:08; Admin Dose 75 MG; Start 03/03/17 at 21:00 Assessment/Plan Additional Assessment/Plan Rehabilitation- Left pontine infarct CVA with right sided weakness Continue interdisciplinary treatment plan Diabetes Mellitus type 2-under good control Diabetic Polyneuropathy. Dysphagia-improving Chronic Kidney Disease. Hyperlipidemia COPD Polysubstance abuse TAYLOR RON MD Mar 06, 2017 11:03
[2017-03-06 15:06] VITALS: BP 156/84; PULSE 65; RESP 18
[2017-03-06] MEDS: ATORVASTATIN 20 MG TAB PO SCH (20:43)
[2017-03-06] MEDS: SENNA TAB PO SCH (20:45)
[2017-03-07 00:47] VITALS: BP 151/81; RESP 18
[2017-03-07] MEDS: HYDROCODONE/APAP (5/325) TAB PO PRN ×5 (01:17→20:19)
[2017-03-07] MEDS: ACCUCHECK AT 2AM (Patients on SS coverage) XX SCH (02:00)
[2017-03-07] MEDS: GABAPENTIN 300 MG CAP PO SCH ×3 (06:34→20:19)
[2017-03-07 07:30] VITALS: BP 150/84; RESP 18
[2017-03-07] MEDS: FAMOTIDINE 20 MG TAB PO SCH ×2 (08:09→20:19)
[2017-03-07] MEDS: PREGABALIN 75 MG CAP PO SCH ×2 (08:09→20:18)
[2017-03-07] MEDS: DOCUSATE SODIUM 100 MG CAP PO SCH ×2 (08:09→20:17)
[2017-03-07] MEDS: ASPIRIN (EC) 325 MG TAB PO SCH (08:09)
[2017-03-07] MEDS: HYDROCHLOROTHIAZIDE 25 MG TAB PO SCH (08:12)
[2017-03-07] MEDS: AMIODARONE 200 MG TAB PO SCH ×2 (08:13→20:19)
[2017-03-07] MEDS: AMLODIPINE 10 MG TAB PO SCH (08:13)
[2017-03-07] MEDS: MUPIROCIN 2% 22 GM OINT TOP SCH (08:14)
[2017-03-07] MEDS: Insulin NOVOLOG SS MILD Algorithm (SS with meals and bedtime) SC SCH ×4 (08:16→20:24)
[2017-03-07 08:19] VITALS: BP 154/80; PULSE 64; RESP 16
--- NOTE | 2017-03-07 09:30 | CONS ---
Date/Time of Note Date/Time of Note DATE: 03/07/17 TIME: 09:28 Consult Date/Type/Reason Admit Date/Time Feb 26, 2017 at 20:05 Initial Consult Date 02/27/17 Type of Consultation: med Subjective 56-year-old -[place] male with a past medical history of hypertension diabetes dyslipidemia COPD who was presented to an outside hospital with right- sided weakness numbness and inability to speak. She in the emergency room had a CT scan which showed findings of a low attenuation area and anterior internal capsule and low-attenuation area in the [place] consistent with acute infarct. Patient was subsequently admitted where he was seen by neurologist. The patient had full workup including 2D echo carotid duplex ultrasound and MRI of the brain. The patient was placed on full aspirin. Patient was eventually stabilized and transferred to [facility] acute rehab for continued care. Tolerating meds and therapies. poc reviewed with dr. ruiz. Objective Vital Signs Date Time Temp Pulse Resp B/P Pulse Ox O2 Delivery O2 Flow Rate FiO2 03/07/17 08:19 98.1 64 16 154/80 98 Room Air Intake and Output 03/06/17 03/06/17 03/07/17 15:00 23:00 07:00 Intake Total 1200 ml 600 ml 700 ml Output Total 600 ml 500 ml Balance 600 ml 100 ml 700 ml Results/Medications Result Diagram: 03/05/17 0625 Results 24 hrs Laboratory Tests Test 03/06/17 12:07 03/06/17 17:25 03/06/17 20:50 03/07/17 07:51 Bedside Glucose 304 H 188 162 217 Medications Current Medications Docusate Sodium (Colace) 100 mg BID PO Last administered on 03/07/17 08:09; Admin Dose 100 MG; Start 02/27/17 at 09:00 Senna (Senokot) 1 tab HS PO Last administered on 03/05/17 20:58; Admin Dose 1 TAB; Start 02/27/17 at 21:00 Bisacodyl (Dulcolax Supp) 10 mg DAILY PRN [place] CONSTIPATION; Start 02/26/17 at 23 :30 Magnesium Hydroxide (Milk Of Mag) 30 ml BID PRN PO CONSTIPATION; Start at 23:30 Lactulose (Enulose) 20 gm DAILY PRN PO CONSTIPATION; Start 02/26/17 at 23:30 Acetaminophen (Tylenol Tab) 650 mg Q4H PRN PO FEVER, H/A; MILD PAIN Last administered on 03/05/17 11:49; Admin Dose 650 MG; Start 02/26/17 at 23:30 Acetaminophen/ Hydrocodone Bitart ([place] (5/325)) 1 tab Q4H PRN PO MODERATE PAIN LEVEL 4-6; Start 02/26/17 at 23:30 Acetaminophen/ Hydrocodone Bitart ([place] (5/325)) 2 tab Q4H PRN PO SEVERE PAIN Last administered on 03/07/17 06:34; Admin Dose 2 TAB; Start 02/26/17 at 23:30 Amiodarone HCl (Cordarone) 200 mg BID PO Last administered on 03/07/17 08:13; Admin Dose 200 MG; Start 02/27/17 at 09:00 Amlodipine Besylate (Norvasc) 10 mg DAILY PO Last administered on 03/07/17 08: 13; Admin Dose 10 MG; Start 02/27/17 at 09:00 Atorvastatin Calcium (Lipitor) 20 mg DAILY@21 PO Last administered on 03/06/17 20:43; Admin Dose 20 MG; Start 02/27/17 at 21:00 Carvedilol (Coreg) 12.5 mg BID PO Last administered on 03/07/17 08:13; Admin Dose 12.5 MG; Start 02/27/17 at 09:00 Hydralazine HCl (Apresoline) 100 mg TID PO Last administered on 03/07/17 08:12 ; Admin Dose 100 MG; Start 02/27/17 at 09:00 Aspirin (Ecotrin) 325 mg DAILY PO Last administered on 03/07/17 08:09; Admin Dose 325 MG; Start 02/27/17 at 09:00 Clonidine (Catapres) 0.1 mg Q6H PRN PO ELEVATED BLOOD PRESSURE Last administered on 03/01/17 07:12; Admin Dose 0.1 MG; Start 02/26/17 at 23:30 Diagnostic Test (Pha) (Accu-Chek) 1 ea 02 XX ; Start 02/27/17 at 02:00 Miscellaneous Information 1 ea NOTE XX ; Start 02/26/17 at 23:30 Glucose (Glutose) 15 gm Q15M PRN PO DECREASED GLUCOSE; Start 02/26/17 at 23:30 Glucose (Glutose) 22.5 gm Q15M PRN PO DECREASED GLUCOSE; Start 02/26/17 at 23: 30 Dextrose (D50w Syringe) 25 ml Q15M PRN IV DECREASED GLUCOSE; Start 02/26/17 at 23:30 Dextrose (D50w Syringe) 50 ml Q15M PRN IV DECREASED GLUCOSE; Start 02/26/17 at 23:30 Glucagon (Glucagen) 1 mg Q15M PRN IM DECREASED GLUCOSE; Start 02/26/17 at 23:30 Glucose (Glutose) 15 gm Q15M PRN BUCCAL DECREASED GLUCOSE; Start 02/26/17 at 23 :30 Gabapentin (Neurontin) 300 mg Q8 PO Last administered on 03/07/17 06:34; Admin Dose 300 MG; Start 02/27/17 at 06:00 Mupirocin (Bactroban) 1 applic BID TOP Last administered on 03/07/17 08:14; Admin Dose 1 APPLIC; Start 02/28/17 at 21:00; Stop 03/07/17 at 20:59 Famotidine (Pepcid) 20 mg BID PO Last administered on 03/07/17 08:09; Admin Dose 20 MG; Start 02/28/17 at 21:00 Hydrochlorothiazide (Hydrochlorothiazide) 25 mg DAILY PO Last administered on 08:12; Admin Dose 25 MG; Start 03/04/17 at 09:00 Pregabalin (Lyrica) 75 mg BID PO Last administered on 03/07/17 08:09; Admin Dose 75 MG; Start 03/03/17 at 21:00 Assessment/Plan Chief Complaint/Hosp Course 1 acute CVA with right-sided hemiparesis. -Slowly improving Plan is to continue current medical management continue aspirin continue statin therapy continue good blood pressure control. Continue physical therapy occupational therapy 2. Hypertension -Blood pressure improving. -Continue current blood pressure medications -Monitor closely 3. 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 Patient with nephrotic range proteinuria -Urinalysis is bland. Patient has significant proteinuria on protein creatinine ratio. Albumin creatinine ratio pending -Renal ultrasound reviewed showed increased echogenicity consistent with CKD We will continue supportive care renally dose meds avoid nephrotoxic -QUIN inhibitor/ARB once renal function stable 4. Anemia monitor H&H levels 5 diabetes continue Accu-Cheks insulin sliding scale 6 mineral bone disorder will monitor calcium phosphorus levels 7 history of COPD. Continue to monitor continue medical management 8. GI DVT prophylaxis continue PPI aspirin sequential leg squeezers 9. History of arrhythmia. Patient is on amiodarone and Coreg. We will continue to monitor consider cardiology evaluation Problems: SHEREE MATHIS MD Mar 07, 2017 09:30
--- NOTE | 2017-03-07 12:13 | CONS ---
Date/Time of Note Date/Time of Note DATE: 03/07/17 TIME: 12:12 Consult Date/Type/Reason Admit Date/Time Feb 26, 2017 at 20:05 Initial Consult Date 02/27/17 Type of Consultation: med Subjective Improving verbal output Objective Lungs clear anteriorly Moderate assist for ambulation Vital Signs Date Time Temp Pulse Resp B/P Pulse Ox O2 Delivery O2 Flow Rate FiO2 03/07/17 08:19 98.1 64 16 154/80 98 Room Air Intake and Output 03/06/17 03/06/17 03/07/17 15:00 23:00 07:00 Intake Total 1200 ml 600 ml 700 ml Output Total 600 ml 500 ml Balance 600 ml 100 ml 700 ml Results/Medications Result Diagram: 03/05/17 0625 Results 24 hrs Laboratory Tests Test 03/06/17 17:25 03/06/17 20:50 03/07/17 07:51 Bedside Glucose 188 162 217 Medications Current Medications Docusate Sodium (Colace) 100 mg BID PO Last administered on 03/07/17 08:09; Admin Dose 100 MG; Start 02/27/17 at 09:00 Senna (Senokot) 1 tab HS PO Last administered on 03/05/17 20:58; Admin Dose 1 TAB; Start 02/27/17 at 21:00 Bisacodyl (Dulcolax Supp) 10 mg DAILY PRN [place] CONSTIPATION; Start 02/26/17 at 23 :30 Magnesium Hydroxide (Milk Of Mag) 30 ml BID PRN PO CONSTIPATION; Start at 23:30 Lactulose (Enulose) 20 gm DAILY PRN PO CONSTIPATION; Start 02/26/17 at 23:30 Acetaminophen (Tylenol Tab) 650 mg Q4H PRN PO FEVER, H/A; MILD PAIN Last administered on 03/05/17 11:49; Admin Dose 650 MG; Start 02/26/17 at 23:30 Acetaminophen/ Hydrocodone Bitart ([place] (5/325)) 1 tab Q4H PRN PO MODERATE PAIN LEVEL 4-6; Start 02/26/17 at 23:30 Acetaminophen/ Hydrocodone Bitart ([place] (5/325)) 2 tab Q4H PRN PO SEVERE PAIN Last administered on 03/07/17 10:49; Admin Dose 2 TAB; Start 02/26/17 at 23:30 Amiodarone HCl (Cordarone) 200 mg BID PO Last administered on 03/07/17 08:13; Admin Dose 200 MG; Start 02/27/17 at 09:00 Amlodipine Besylate (Norvasc) 10 mg DAILY PO Last administered on 03/07/17 08: 13; Admin Dose 10 MG; Start 02/27/17 at 09:00 Atorvastatin Calcium (Lipitor) 20 mg DAILY@21 PO Last administered on 03/06/17 20:43; Admin Dose 20 MG; Start 02/27/17 at 21:00 Carvedilol (Coreg) 12.5 mg BID PO Last administered on 03/07/17 08:13; Admin Dose 12.5 MG; Start 02/27/17 at 09:00 Hydralazine HCl (Apresoline) 100 mg TID PO Last administered on 03/07/17 08:12 ; Admin Dose 100 MG; Start 02/27/17 at 09:00 Aspirin (Ecotrin) 325 mg DAILY PO Last administered on 03/07/17 08:09; Admin Dose 325 MG; Start 02/27/17 at 09:00 Clonidine (Catapres) 0.1 mg Q6H PRN PO ELEVATED BLOOD PRESSURE Last administered on 03/01/17 07:12; Admin Dose 0.1 MG; Start 02/26/17 at 23:30 Diagnostic Test (Pha) (Accu-Chek) 1 ea 02 XX ; Start 02/27/17 at 02:00 Miscellaneous Information 1 ea NOTE XX ; Start 02/26/17 at 23:30 Glucose (Glutose) 15 gm Q15M PRN PO DECREASED GLUCOSE; Start 02/26/17 at 23:30 Glucose (Glutose) 22.5 gm Q15M PRN PO DECREASED GLUCOSE; Start 02/26/17 at 23: 30 Dextrose (D50w Syringe) 25 ml Q15M PRN IV DECREASED GLUCOSE; Start 02/26/17 at 23:30 Dextrose (D50w Syringe) 50 ml Q15M PRN IV DECREASED GLUCOSE; Start 02/26/17 at 23:30 Glucagon (Glucagen) 1 mg Q15M PRN IM DECREASED GLUCOSE; Start 02/26/17 at 23:30 Glucose (Glutose) 15 gm Q15M PRN BUCCAL DECREASED GLUCOSE; Start 02/26/17 at 23 :30 Gabapentin (Neurontin) 300 mg Q8 PO Last administered on 03/07/17 06:34; Admin Dose 300 MG; Start 02/27/17 at 06:00 Mupirocin (Bactroban) 1 applic BID TOP Last administered on 03/07/17 08:14; Admin Dose 1 APPLIC; Start 02/28/17 at 21:00; Stop 03/07/17 at 20:59 Famotidine (Pepcid) 20 mg BID PO Last administered on 03/07/17 08:09; Admin Dose 20 MG; Start 02/28/17 at 21:00 Hydrochlorothiazide (Hydrochlorothiazide) 25 mg DAILY PO Last administered on 08:12; Admin Dose 25 MG; Start 03/04/17 at 09:00 Pregabalin (Lyrica) 75 mg BID PO Last administered on 03/07/17 08:09; Admin Dose 75 MG; Start 03/03/17 at 21:00 Assessment/Plan Additional Assessment/Plan Rehabilitation- Left pontine infarct CVA with right sided weakness Continue rehabilitation treatment plan Diabetes Mellitus type 2-under good control Diabetic Polyneuropathy. Dysphagia-improving Chronic Kidney Disease. Hyperlipidemia COPD Polysubstance abuse TAYLOR RON MD Mar 07, 2017 12:12
[2017-03-07 12:43] VITALS: BP 130/84; PULSE 70; RESP 16
[2017-03-07 19:30] VITALS: BP 161/88; PULSE 75; RESP 16
[2017-03-07] MEDS: SENNA TAB PO SCH (20:18)
[2017-03-07] MEDS: ATORVASTATIN 20 MG TAB PO SCH (20:19)
[2017-03-08] MEDS: HYDROCODONE/APAP (5/325) TAB PO PRN ×6 (00:16→23:41)
[2017-03-08] MEDS: ACCUCHECK AT 2AM (Patients on SS coverage) XX SCH (02:00)
[2017-03-08] MEDS: ACETAMINOPHEN 325 MG TAB PO PRN (03:20)
[2017-03-08] MEDS: GABAPENTIN 300 MG CAP PO SCH ×3 (05:51→20:13)
[2017-03-08] MEDS: Insulin NOVOLOG SS MILD Algorithm (SS with meals and bedtime) SC SCH ×4 (07:05→20:12)
[2017-03-08] MEDS: AMLODIPINE 10 MG TAB PO SCH (08:03)
[2017-03-08] MEDS: FAMOTIDINE 20 MG TAB PO SCH ×2 (08:03→20:13)
[2017-03-08] MEDS: ASPIRIN (EC) 325 MG TAB PO SCH (08:03)
[2017-03-08] MEDS: PREGABALIN 75 MG CAP PO SCH ×2 (08:04→20:13)
[2017-03-08] MEDS: DOCUSATE SODIUM 100 MG CAP PO SCH ×2 (08:04→20:13)
[2017-03-08] MEDS: HYDROCHLOROTHIAZIDE 25 MG TAB PO SCH (08:04)
[2017-03-08] MEDS: AMIODARONE 200 MG TAB PO SCH ×2 (08:04→20:19)
[2017-03-08 08:09] VITALS: BP 164/98; PULSE 72; RESP 16
[2017-03-08 09:05] VITALS: BP 164/98; RESP 18
--- NOTE | 2017-03-08 10:00 | CONS ---
Date/Time of Note Date/Time of Note DATE: 03/08/17 TIME: 09:59 Consult Date/Type/Reason Admit Date/Time Feb 26, 2017 at 20:05 Initial Consult Date 02/27/17 Type of Consultation: med Subjective 56-year-old -[place] male with a past medical history of hypertension diabetes dyslipidemia COPD who was presented to an outside hospital with right- sided weakness numbness and inability to speak. She in the emergency room had a CT scan which showed findings of a low attenuation area and anterior internal capsule and low-attenuation area in the [place] consistent with acute infarct. Patient was subsequently admitted where he was seen by neurologist. The patient had full workup including 2D echo carotid duplex ultrasound and MRI of the brain. The patient was placed on full aspirin. Patient was eventually stabilized and transferred to [facility] acute rehab for continued care. Tolerating meds and therapies. poc reviewed with dr. ruiz. Physical exam. Generally patient is in no acute distress HEENT head is normocephalic pupils are reactive to light Heart is regular rate no gallops clicks Lungs show diminished breath sounds at the base Abdomen soft nontender palpation rebound guarding Extremities are negative for clubbing cyanosis no edema Dermatologically no rashes Musculoskeletal no joint effusion Objective Vital Signs Date Time Temp Pulse Resp B/P Pulse Ox O2 Delivery O2 Flow Rate FiO2 03/08/17 09:05 97.4 72 18 164/98 95 03/08/17 08:09 Room Air Intake and Output 03/07/17 03/07/17 03/08/17 15:00 23:00 07:00 Intake Total 1020 ml 700 ml Output Total 750 ml Balance 270 ml 700 ml Results/Medications Result Diagram: 03/05/17 0625 Results 24 hrs Laboratory Tests Test 03/07/17 12:10 03/07/17 16:52 03/07/17 20:14 03/08/17 03:24 Bedside Glucose 197 151 205 172 Test 03/08/17 07:41 Bedside Glucose 136 Medications Current Medications Docusate Sodium (Colace) 100 mg BID PO Last administered on 03/08/17 08:04; Admin Dose 100 MG; Start 02/27/17 at 09:00 Senna (Senokot) 1 tab HS PO Last administered on 03/07/17 20:18; Admin Dose 1 TAB; Start 02/27/17 at 21:00 Bisacodyl (Dulcolax Supp) 10 mg DAILY PRN [place] CONSTIPATION; Start 02/26/17 at 23 :30 Magnesium Hydroxide (Milk Of Mag) 30 ml BID PRN PO CONSTIPATION Last administered on 03/08/17 08:05; Admin Dose 30 ML; Start 02/26/17 at 23:30 Lactulose (Enulose) 20 gm DAILY PRN PO CONSTIPATION; Start 02/26/17 at 23:30 Acetaminophen (Tylenol Tab) 650 mg Q4H PRN PO FEVER, H/A; MILD PAIN Last administered on 03/08/17 03:20; Admin Dose 650 MG; Start 02/26/17 at 23:30 Acetaminophen/ Hydrocodone Bitart ([place] (5/325)) 1 tab Q4H PRN PO MODERATE PAIN LEVEL 4-6; Start 02/26/17 at 23:30 Acetaminophen/ Hydrocodone Bitart ([place] (5/325)) 2 tab Q4H PRN PO SEVERE PAIN Last administered on 03/08/17 05:51; Admin Dose 2 TAB; Start 02/26/17 at 23:30 Amiodarone HCl (Cordarone) 200 mg BID PO Last administered on 03/08/17 08:04; Admin Dose 200 MG; Start 02/27/17 at 09:00 Amlodipine Besylate (Norvasc) 10 mg DAILY PO Last administered on 03/08/17 08: 03; Admin Dose 10 MG; Start 02/27/17 at 09:00 Atorvastatin Calcium (Lipitor) 20 mg DAILY@21 PO Last administered on 03/07/17 20:19; Admin Dose 20 MG; Start 02/27/17 at 21:00 Carvedilol (Coreg) 12.5 mg BID PO Last administered on 03/08/17 08:05; Admin Dose 12.5 MG; Start 02/27/17 at 09:00 Hydralazine HCl (Apresoline) 100 mg TID PO Last administered on 03/08/17 08:04 ; Admin Dose 100 MG; Start 02/27/17 at 09:00 Aspirin (Ecotrin) 325 mg DAILY PO Last administered on 03/08/17 08:03; Admin Dose 325 MG; Start 02/27/17 at 09:00 Clonidine (Catapres) 0.1 mg Q6H PRN PO ELEVATED BLOOD PRESSURE Last administered on 03/01/17 07:12; Admin Dose 0.1 MG; Start 02/26/17 at 23:30 Diagnostic Test (Pha) (Accu-Chek) 1 ea 02 XX ; Start 02/27/17 at 02:00 Miscellaneous Information 1 ea NOTE XX ; Start 02/26/17 at 23:30 Glucose (Glutose) 15 gm Q15M PRN PO DECREASED GLUCOSE; Start 02/26/17 at 23:30 Glucose (Glutose) 22.5 gm Q15M PRN PO DECREASED GLUCOSE; Start 02/26/17 at 23: 30 Dextrose (D50w Syringe) 25 ml Q15M PRN IV DECREASED GLUCOSE; Start 02/26/17 at 23:30 Dextrose (D50w Syringe) 50 ml Q15M PRN IV DECREASED GLUCOSE; Start 02/26/17 at 23:30 Glucagon (Glucagen) 1 mg Q15M PRN IM DECREASED GLUCOSE; Start 02/26/17 at 23:30 Glucose (Glutose) 15 gm Q15M PRN BUCCAL DECREASED GLUCOSE; Start 02/26/17 at 23 :30 Gabapentin (Neurontin) 300 mg Q8 PO Last administered on 03/08/17 05:51; Admin Dose 300 MG; Start 02/27/17 at 06:00 Famotidine (Pepcid) 20 mg BID PO Last administered on 03/08/17 08:03; Admin Dose 20 MG; Start 02/28/17 at 21:00 Hydrochlorothiazide (Hydrochlorothiazide) 25 mg DAILY PO Last administered on 08:04; Admin Dose 25 MG; Start 03/04/17 at 09:00 Pregabalin (Lyrica) 75 mg BID PO Last administered on 03/08/17 08:04; Admin Dose 75 MG; Start 03/03/17 at 21:00 Assessment/Plan Chief Complaint/Hosp Course 1 acute CVA with right-sided hemiparesis. -Slowly improving Plan is to continue current medical management continue aspirin continue statin therapy continue good blood pressure control. Continue physical therapy occupational therapy 2. Hypertension -Blood pressure improving. -Continue current blood pressure medications -Monitor closely 3. 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 Patient with nephrotic range proteinuria -Urinalysis is bland. Patient has significant proteinuria on protein creatinine ratio. Albumin creatinine ratio pending -Renal ultrasound reviewed showed increased echogenicity consistent with CKD We will continue supportive care renally dose meds avoid nephrotoxic -QUIN inhibitor/ARB once renal function stable 4. Anemia monitor H&H levels 5 diabetes continue Accu-Cheks insulin sliding scale 6 mineral bone disorder will monitor calcium phosphorus levels 7 history of COPD. Continue to monitor continue medical management 8. GI DVT prophylaxis continue PPI aspirin sequential leg squeezers 9. History of arrhythmia. Patient is on amiodarone and Coreg. We will continue to monitor consider cardiology evaluation Problems: SHEREE MATHIS MD Mar 08, 2017 10:00
[2017-03-08 12:34] VITALS: BP 136/79; PULSE 72; RESP 16
[2017-03-08 19:52] VITALS: BP 145/80; RESP 18
[2017-03-08] MEDS: SENNA TAB PO SCH (20:13)
[2017-03-08] MEDS: ATORVASTATIN 20 MG TAB PO SCH (20:13)
[2017-03-09] MEDS: ACCUCHECK AT 2AM (Patients on SS coverage) XX SCH (02:00)
[2017-03-09] MEDS: GABAPENTIN 300 MG CAP PO SCH ×3 (05:03→21:05)
[2017-03-09] MEDS: HYDROCODONE/APAP (5/325) TAB PO PRN ×6 (05:04→23:25)
[2017-03-09] MEDS: Insulin NOVOLOG SS MILD Algorithm (SS with meals and bedtime) SC SCH ×4 (07:05→21:00)
[2017-03-09 07:30] VITALS: BP 143/88; RESP 18
[2017-03-09] MEDS: ASPIRIN (EC) 325 MG TAB PO SCH (08:36)
[2017-03-09] MEDS: FAMOTIDINE 20 MG TAB PO SCH ×2 (08:36→21:05)
[2017-03-09] MEDS: AMLODIPINE 10 MG TAB PO SCH (08:36)
[2017-03-09] MEDS: DOCUSATE SODIUM 100 MG CAP PO SCH ×2 (08:36→21:06)
[2017-03-09] MEDS: PREGABALIN 75 MG CAP PO SCH ×2 (08:37→21:06)
[2017-03-09] MEDS: AMIODARONE 200 MG TAB PO SCH ×2 (08:37→21:05)
[2017-03-09] MEDS: HYDROCHLOROTHIAZIDE 25 MG TAB PO SCH (08:38)
--- NOTE | 2017-03-09 11:10 | CONS ---
Date/Time of Note Date/Time of Note DATE: 03/09/17 TIME: 11:09 Consult Date/Type/Reason Admit Date/Time Feb 26, 2017 at 20:05 Initial Consult Date 02/27/17 Type of Consultation: med Objective Vital Signs Date Time Temp Pulse Resp B/P Pulse Ox O2 Delivery O2 Flow Rate FiO2 03/08/17 19:52 98.3 75 18 145/80 97 03/08/17 12:34 Room Air Intake and Output 03/08/17 03/08/17 03/09/17 15:00 23:00 07:00 Intake Total 150 ml 1710 ml 650 ml Output Total 700 ml 450 ml Balance -550 ml 1260 ml 650 ml INTERDISCIPLINARY TEAM CONFERENCE BOWEL- Cont BLADDER-Cont SKIN- intact OT- DRESSING-moderate assist BATHING-moderate assist TOILETING-moderate assist PT- BED MOBILITY-moderate assist TRANSFERS-moderate assist AMBULATION-moderate assist 50 feet SPEECH- COGNITION-minimal assist to moderate assist DYPHAGIA A/P- Interdisciplinary team conference held today. Please see interdisciplinary sheet. Working toward d.c. on 03/12 with post discharge follow up of physical therapy, occupational therapy. Results/Medications Result Diagram: 03/05/17 0625 Results 24 hrs Laboratory Tests Test 03/08/17 12:18 03/08/17 17:14 03/08/17 20:12 03/09/17 07:48 Bedside Glucose 195 204 161 134 Medications Current Medications Docusate Sodium (Colace) 100 mg BID PO Last administered on 03/09/17 08:36; Admin Dose 100 MG; Start 02/27/17 at 09:00 Senna (Senokot) 1 tab HS PO Last administered on 03/08/17 20:13; Admin Dose 1 TAB; Start 02/27/17 at 21:00 Bisacodyl (Dulcolax Supp) 10 mg DAILY PRN [place] CONSTIPATION; Start 02/26/17 at 23 :30 Magnesium Hydroxide (Milk Of Mag) 30 ml BID PRN PO CONSTIPATION Last administered on 03/08/17 08:05; Admin Dose 30 ML; Start 02/26/17 at 23:30 Lactulose (Enulose) 20 gm DAILY PRN PO CONSTIPATION; Start 02/26/17 at 23:30 Acetaminophen (Tylenol Tab) 650 mg Q4H PRN PO FEVER, H/A; MILD PAIN Last administered on 03/08/17 03:20; Admin Dose 650 MG; Start 02/26/17 at 23:30 Acetaminophen/ Hydrocodone Bitart ([place] (5/325)) 1 tab Q4H PRN PO MODERATE PAIN LEVEL 4-6; Start 02/26/17 at 23:30 Acetaminophen/ Hydrocodone Bitart ([place] (5/325)) 2 tab Q4H PRN PO SEVERE PAIN Last administered on 03/09/17 08:38; Admin Dose 2 TAB; Start 02/26/17 at 23:30 Amiodarone HCl (Cordarone) 200 mg BID PO Last administered on 03/09/17 08:37; Admin Dose 200 MG; Start 02/27/17 at 09:00 Amlodipine Besylate (Norvasc) 10 mg DAILY PO Last administered on 03/09/17 08: 36; Admin Dose 10 MG; Start 02/27/17 at 09:00 Atorvastatin Calcium (Lipitor) 20 mg DAILY@21 PO Last administered on 03/08/17 20:13; Admin Dose 20 MG; Start 02/27/17 at 21:00 Carvedilol (Coreg) 12.5 mg BID PO Last administered on 03/09/17 08:37; Admin Dose 12.5 MG; Start 02/27/17 at 09:00 Hydralazine HCl (Apresoline) 100 mg TID PO Last administered on 03/09/17 08:37 ; Admin Dose 100 MG; Start 02/27/17 at 09:00 Aspirin (Ecotrin) 325 mg DAILY PO Last administered on 03/09/17 08:36; Admin Dose 325 MG; Start 02/27/17 at 09:00 Clonidine (Catapres) 0.1 mg Q6H PRN PO ELEVATED BLOOD PRESSURE Last administered on 03/01/17 07:12; Admin Dose 0.1 MG; Start 02/26/17 at 23:30 Diagnostic Test (Pha) (Accu-Chek) 1 ea 02 XX ; Start 02/27/17 at 02:00 Miscellaneous Information 1 ea NOTE XX ; Start 02/26/17 at 23:30 Glucose (Glutose) 15 gm Q15M PRN PO DECREASED GLUCOSE; Start 02/26/17 at 23:30 Glucose (Glutose) 22.5 gm Q15M PRN PO DECREASED GLUCOSE; Start 02/26/17 at 23: 30 Dextrose (D50w Syringe) 25 ml Q15M PRN IV DECREASED GLUCOSE; Start 02/26/17 at 23:30 Dextrose (D50w Syringe) 50 ml Q15M PRN IV DECREASED GLUCOSE; Start 02/26/17 at 23:30 Glucagon (Glucagen) 1 mg Q15M PRN IM DECREASED GLUCOSE; Start 02/26/17 at 23:30 Glucose (Glutose) 15 gm Q15M PRN BUCCAL DECREASED GLUCOSE; Start 02/26/17 at 23 :30 Gabapentin (Neurontin) 300 mg Q8 PO Last administered on 03/09/17 05:03; Admin Dose 300 MG; Start 02/27/17 at 06:00 Famotidine (Pepcid) 20 mg BID PO Last administered on 03/09/17 08:36; Admin Dose 20 MG; Start 02/28/17 at 21:00 Hydrochlorothiazide (Hydrochlorothiazide) 25 mg DAILY PO Last administered on 08:38; Admin Dose 25 MG; Start 03/04/17 at 09:00 Pregabalin (Lyrica) 75 mg BID PO Last administered on 03/09/17 08:37; Admin Dose 75 MG; Start 03/03/17 at 21:00 TAYLOR RON MD Mar 09, 2017 11:09
--- NOTE | 2017-03-09 11:35 | PN ---
Date/Time of Note Date/Time of Note DATE: 03/09/17 TIME: 11:33 Assessment/Plan Lines/Catheters Urinary Cath still in place: No Assessment/Plan Chief Complaint/Hosp Course 1 acute CVA with right-sided hemiparesis. -Slowly improving Plan is to continue current medical management continue aspirin continue statin therapy continue good blood pressure control. Continue physical therapy occupational therapy 2. Hypertension -Blood pressure improving. -Continue current blood pressure medications -Monitor closely 3. 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 Patient with nephrotic range proteinuria -Urinalysis is bland. Patient has significant proteinuria on protein creatinine ratio. Albumin creatinine ratio pending -Renal ultrasound reviewed showed increased echogenicity consistent with CKD We will continue supportive care renally dose meds avoid nephrotoxic QUIN inhibitor once renal function stable 4. Anemia monitor H&H levels 5 diabetes continue Accu-Cheks insulin sliding scale 6 mineral bone disorder will monitor calcium phosphorus levels 7 history of COPD. Continue to monitor continue medical management 8. GI DVT prophylaxis continue PPI aspirin sequential leg squeezers 9. History of arrhythmia. Patient is on amiodarone and Coreg. We will continue to monitor consider cardiology evaluation Problems: Subjective 24 Hr Interval Summary Free Text/Dictation Patient stable no events over Exam/Review of Systems Vital Signs Vitals Vital Signs Date Time Temp Pulse Resp B/P Pulse Ox O2 Delivery O2 Flow Rate FiO2 03/08/17 19:52 98.3 75 18 145/80 97 03/08/17 12:34 Room Air Intake and Output 03/08/17 03/08/17 03/09/17 15:00 23:00 07:00 Intake Total 150 ml 1710 ml 650 ml Output Total 700 ml 450 ml Balance -550 ml 1260 ml 650 ml Exam Generally patient is in no acute distress HEENT head is normocephalic pupils are reactive to light Heart is regular rate no gallops clicks Lungs show diminished breath sounds at the base Abdomen soft nontender palpation rebound guarding Extremities are negative for clubbing cyanosis no edema Dermatologically no rashes Musculoskeletal no joint effusion Neurologically patient has right-sided hemiparesis Results Result Diagram: 03/05/17 0625 Results 24 hrs Laboratory Tests Test 03/08/17 12:18 03/08/17 17:14 03/08/17 20:12 03/09/17 07:48 Bedside Glucose 195 204 161 134 Medications Medications Current Medications Docusate Sodium (Colace) 100 mg BID PO Last administered on 03/09/17 08:36; Admin Dose 100 MG; Start 02/27/17 at 09:00 Senna (Senokot) 1 tab HS PO Last administered on 03/08/17 20:13; Admin Dose 1 TAB; Start 02/27/17 at 21:00 Bisacodyl (Dulcolax Supp) 10 mg DAILY PRN ID CONSTIPATION; Start 02/26/17 at 23 :30 Magnesium Hydroxide (Milk Of Mag) 30 ml BID PRN PO CONSTIPATION Last administered on 03/08/17 08:05; Admin Dose 30 ML; Start 02/26/17 at 23:30 Lactulose (Enulose) 20 gm DAILY PRN PO CONSTIPATION; Start 02/26/17 at 23:30 Acetaminophen (Tylenol Tab) 650 mg Q4H PRN PO FEVER, H/A; MILD PAIN Last administered on 03/08/17 03:20; Admin Dose 650 MG; Start 02/26/17 at 23:30 Acetaminophen/ Hydrocodone Bitart ([place] (5/325)) 1 tab Q4H PRN PO MODERATE PAIN LEVEL 4-6; Start 02/26/17 at 23:30 Acetaminophen/ Hydrocodone Bitart ([place] (5/325)) 2 tab Q4H PRN PO SEVERE PAIN Last administered on 03/09/17 08:38; Admin Dose 2 TAB; Start 02/26/17 at 23:30 Amiodarone HCl (Cordarone) 200 mg BID PO Last administered on 03/09/17 08:37; Admin Dose 200 MG; Start 02/27/17 at 09:00 Amlodipine Besylate (Norvasc) 10 mg DAILY PO Last administered on 03/09/17 08: 36; Admin Dose 10 MG; Start 02/27/17 at 09:00 Atorvastatin Calcium (Lipitor) 20 mg DAILY@21 PO Last administered on 03/08/17 20:13; Admin Dose 20 MG; Start 02/27/17 at 21:00 Carvedilol (Coreg) 12.5 mg BID PO Last administered on 03/09/17 08:37; Admin Dose 12.5 MG; Start 02/27/17 at 09:00 Hydralazine HCl (Apresoline) 100 mg TID PO Last administered on 03/09/17 08:37 ; Admin Dose 100 MG; Start 02/27/17 at 09:00 Aspirin (Ecotrin) 325 mg DAILY PO Last administered on 03/09/17 08:36; Admin Dose 325 MG; Start 02/27/17 at 09:00 Clonidine (Catapres) 0.1 mg Q6H PRN PO ELEVATED BLOOD PRESSURE Last administered on 03/01/17 07:12; Admin Dose 0.1 MG; Start 02/26/17 at 23:30 Diagnostic Test (Pha) (Accu-Chek) 1 ea 02 XX ; Start 02/27/17 at 02:00 Miscellaneous Information 1 ea NOTE XX ; Start 02/26/17 at 23:30 Glucose (Glutose) 15 gm Q15M PRN PO DECREASED GLUCOSE; Start 02/26/17 at 23:30 Glucose (Glutose) 22.5 gm Q15M PRN PO DECREASED GLUCOSE; Start 02/26/17 at 23: 30 Dextrose (D50w Syringe) 25 ml Q15M PRN IV DECREASED GLUCOSE; Start 02/26/17 at 23:30 Dextrose (D50w Syringe) 50 ml Q15M PRN IV DECREASED GLUCOSE; Start 02/26/17 at 23:30 Glucagon (Glucagen) 1 mg Q15M PRN IM DECREASED GLUCOSE; Start 02/26/17 at 23:30 Glucose (Glutose) 15 gm Q15M PRN BUCCAL DECREASED GLUCOSE; Start 02/26/17 at 23 :30 Gabapentin (Neurontin) 300 mg Q8 PO Last administered on 03/09/17 05:03; Admin Dose 300 MG; Start 02/27/17 at 06:00 Famotidine (Pepcid) 20 mg BID PO Last administered on 03/09/17 08:36; Admin Dose 20 MG; Start 02/28/17 at 21:00 Hydrochlorothiazide (Hydrochlorothiazide) 25 mg DAILY PO Last administered on 08:38; Admin Dose 25 MG; Start 03/04/17 at 09:00 Pregabalin (Lyrica) 75 mg BID PO Last administered on 03/09/17 08:37; Admin Dose 75 MG; Start 03/03/17 at 21:00 BRITTON ARAMBULA DO Mar 09, 2017 11:35
[2017-03-09 20:00] VITALS: BP 160/93; RESP 18
[2017-03-09] MEDS: SENNA TAB PO SCH (21:05)
[2017-03-09] MEDS: ATORVASTATIN 20 MG TAB PO SCH (21:06)
[2017-03-10] MEDS: ACCUCHECK AT 2AM (Patients on SS coverage) XX SCH (02:00)
[2017-03-10] MEDS: GABAPENTIN 300 MG CAP PO SCH ×3 (05:30→22:14)
[2017-03-10] MEDS: HYDROCODONE/APAP (5/325) TAB PO PRN ×5 (05:31→22:14)
[2017-03-10] MEDS: Insulin NOVOLOG SS MILD Algorithm (SS with meals and bedtime) SC SCH ×4 (07:05→20:26)
[2017-03-10 08:00] VITALS: BP 130/77; RESP 18
[2017-03-10 08:30] LABS: CALCIUM 9.7 mg/dl (8.4-10.2); CREATININE 1.53 mg/dl (0.61-1.24); MAGNESIUM 1.6 mg/dl (1.7-2.5); PHOSPHORUS 6.3 mg/dl (2.5-4.9); POTASSIUM 4.3 mmol/L (3.5-5.1)
[2017-03-10] MEDS: AMIODARONE 200 MG TAB PO SCH ×2 (09:13→20:25)
[2017-03-10] MEDS: FAMOTIDINE 20 MG TAB PO SCH ×2 (09:13→20:26)
[2017-03-10] MEDS: AMLODIPINE 10 MG TAB PO SCH (09:13)
[2017-03-10] MEDS: ASPIRIN (EC) 325 MG TAB PO SCH (09:14)
[2017-03-10] MEDS: DOCUSATE SODIUM 100 MG CAP PO SCH ×2 (09:14→20:24)
[2017-03-10] MEDS: HYDROCHLOROTHIAZIDE 25 MG TAB PO SCH (09:14)
[2017-03-10] MEDS: PREGABALIN 75 MG CAP PO SCH ×2 (09:14→20:24)
--- NOTE | 2017-03-10 11:36 | PN ---
Date/Time of Note Date/Time of Note DATE: 03/10/17 TIME: 11:35 Assessment/Plan Lines/Catheters Urinary Cath still in place: No Assessment/Plan Chief Complaint/Hosp Course 1 acute CVA with right-sided hemiparesis. -Slowly improving Plan is to continue current medical management continue aspirin continue statin therapy continue good blood pressure control. Continue physical therapy occupational therapy 2. Hyponatremia -Etiology multifactorial, hydrochlorothiazide effect, chronic kidney disease causing decreased free water urine excretion -Discontinue hydrochlorothiazide -Limit free water intake no more than 1 L daily 2. Hypertension -Blood pressure improving. -Discontinue hydrochlorothiazide -Continue current blood pressure medications -Monitor closely 3. 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 Patient with nephrotic range proteinuria -Urinalysis is bland. Patient has significant proteinuria on protein creatinine ratio. Albumin creatinine ratio pending -Renal ultrasound reviewed showed increased echogenicity consistent with CKD We will continue supportive care renally dose meds avoid nephrotoxic -We will hold diuretics 4. Anemia monitor H&H levels 5 diabetes continue Accu-Cheks insulin sliding scale 6 mineral bone disorder will monitor calcium phosphorus levels 7 history of COPD. Continue to monitor continue medical management 8. GI DVT prophylaxis continue PPI aspirin sequential leg squeezers 9. History of arrhythmia. Patient is on amiodarone and Coreg. We will continue to monitor consider cardiology evaluation Problems: Subjective 24 Hr Interval Summary Free Text/Dictation Patient seen and examined no events overnight Exam/Review of Systems Vital Signs Vitals Vital Signs Date Time Temp Pulse Resp B/P Pulse Ox O2 Delivery O2 Flow Rate FiO2 03/10/17 08:00 98.2 53 18 130/77 97 03/08/17 12:34 Room Air Intake and Output 03/09/17 03/09/17 03/10/17 15:00 23:00 07:00 Intake Total 980 ml 550 ml Output Total 760 ml 950 ml Balance 220 ml -400 ml Exam Generally patient is in no acute distress HEENT head is normocephalic pupils are reactive to light Heart is regular rate no gallops clicks Lungs show diminished breath sounds at the base Abdomen soft nontender palpation rebound guarding Extremities are negative for clubbing cyanosis no edema Dermatologically no rashes Musculoskeletal no joint effusion Neurologically patient has right-sided hemiparesis Results Result Diagram: 03/10/17 0735 Results 24 hrs Laboratory Tests Test 03/09/17 11:58 03/09/17:11 03/09/17 21:04 03/10/17 07:35 Bedside Glucose 159 120 119 Sodium Level 129 L Potassium Level 4.3 Chloride Level 101 Carbon Dioxide Level 23 Anion Gap 9 Blood Urea Nitrogen 41 H Creatinine 1.53 H Glucose Level 137 Calcium Level 9.7 Phosphorus Level 6.3 H Magnesium Level 1.6 L Test 03/10/17 07:54 Bedside Glucose 131 Medications Medications Current Medications Docusate Sodium (Colace) 100 mg BID PO Last administered on 03/10/17 09:14; Admin Dose 100 MG; Start 02/27/17 at 09:00 Senna (Senokot) 1 tab HS PO Last administered on 03/09/17 21:05; Admin Dose 1 TAB; Start 02/27/17 at 21:00 Bisacodyl (Dulcolax Supp) 10 mg DAILY PRN [place] CONSTIPATION; Start 02/26/17 at 23 :30 Magnesium Hydroxide (Milk Of Mag) 30 ml BID PRN PO CONSTIPATION Last administered on 03/08/17 08:05; Admin Dose 30 ML; Start 02/26/17 at 23:30 Lactulose (Enulose) 20 gm DAILY PRN PO CONSTIPATION; Start 02/26/17 at 23:30 Acetaminophen (Tylenol Tab) 650 mg Q4H PRN PO FEVER, H/A; MILD PAIN Last administered on 03/08/17 03:20; Admin Dose 650 MG; Start 02/26/17 at 23:30 Acetaminophen/ Hydrocodone Bitart ([place] (5/325)) 1 tab Q4H PRN PO MODERATE PAIN LEVEL 4-6; Start 02/26/17 at 23:30 Acetaminophen/ Hydrocodone Bitart ([place] (5/325)) 2 tab Q4H PRN PO SEVERE PAIN Last administered on 03/10/17 10:04; Admin Dose 2 TAB; Start 02/26/17 at 23:30 Amiodarone HCl (Cordarone) 200 mg BID PO Last administered on 03/10/17 09:13; Admin Dose 200 MG; Start 02/27/17 at 09:00 Amlodipine Besylate (Norvasc) 10 mg DAILY PO Last administered on 03/10/17 09: 13; Admin Dose 10 MG; Start 02/27/17 at 09:00 Atorvastatin Calcium (Lipitor) 20 mg DAILY@21 PO Last administered on 21:06; Admin Dose 20 MG; Start 02/27/17 at 21:00 Carvedilol (Coreg) 12.5 mg BID PO Last administered on 03/10/17 09:14; Admin Dose 12.5 MG; Start 02/27/17 at 09:00 Hydralazine HCl (Apresoline) 100 mg TID PO Last administered on 03/10/17 09:13 ; Admin Dose 100 MG; Start 02/27/17 at 09:00 Aspirin (Ecotrin) 325 mg DAILY PO Last administered on 03/10/17 09:14; Admin Dose 325 MG; Start 02/27/17 at 09:00 Clonidine (Catapres) 0.1 mg Q6H PRN PO ELEVATED BLOOD PRESSURE Last administered on 03/01/17 07:12; Admin Dose 0.1 MG; Start 02/26/17 at 23:30 Diagnostic Test (Pha) (Accu-Chek) 1 ea 02 XX ; Start 02/27/17 at 02:00 Miscellaneous Information 1 ea NOTE XX ; Start 02/26/17 at 23:30 Glucose (Glutose) 15 gm Q15M PRN PO DECREASED GLUCOSE; Start 02/26/17 at 23:30 Glucose (Glutose) 22.5 gm Q15M PRN PO DECREASED GLUCOSE; Start 02/26/17 at 23: 30 Dextrose (D50w Syringe) 25 ml Q15M PRN IV DECREASED GLUCOSE; Start 02/26/17 at 23:30 Dextrose (D50w Syringe) 50 ml Q15M PRN IV DECREASED GLUCOSE; Start 02/26/17 at 23:30 Glucagon (Glucagen) 1 mg Q15M PRN IM DECREASED GLUCOSE; Start 02/26/17 at 23:30 Glucose (Glutose) 15 gm Q15M PRN BUCCAL DECREASED GLUCOSE; Start 02/26/17 at 23 :30 Gabapentin (Neurontin) 300 mg Q8 PO Last administered on 03/10/17 05:30; Admin Dose 300 MG; Start 02/27/17 at 06:00 Famotidine (Pepcid) 20 mg BID PO Last administered on 03/10/17 09:13; Admin Dose 20 MG; Start 02/28/17 at 21:00 Hydrochlorothiazide (Hydrochlorothiazide) 25 mg DAILY PO Last administered on 09:14; Admin Dose 25 MG; Start 03/04/17 at 09:00; Status Future Hold Pregabalin (Lyrica) 75 mg BID PO Last administered on 03/10/17 09:14; Admin Dose 75 MG; Start 03/03/17 at 21:00 BRITTON ARAMBULA DO Mar 10, 2017 11:36
[2017-03-10] MEDS ORDERED: MAGNESIUM OXIDE 400 MG TAB PO ONE (12:00)
--- NOTE | 2017-03-10 13:21 | CONS ---
Date/Time of Note Date/Time of Note DATE: 03/10/17 TIME: 13:20 Consult Date/Type/Reason Admit Date/Time Feb 26, 2017 at 20:05 Initial Consult Date 02/27/17 Type of Consultation: med Subjective Patient reports the knee brace is too heavy Objective Lungs clear anterior Moderate assist transfer and ambulate Vital Signs Date Time Temp Pulse Resp B/P Pulse Ox O2 Delivery O2 Flow Rate FiO2 03/10/17 08:00 98.2 53 18 130/77 97 03/08/17 12:34 Room Air Intake and Output 03/09/17 03/09/17 03/10/17 15:00 23:00 07:00 Intake Total 980 ml 550 ml Output Total 760 ml 950 ml Balance 220 ml -400 ml Results/Medications Result Diagram: 03/10/17 0735 Results 24 hrs Laboratory Tests Test 03/09/17 17:11 03/09/17 21:04 03/10/17 07:35 03/10/17 07:54 Bedside Glucose 120 119 131 Sodium Level 129 L Potassium Level 4.3 Chloride Level 101 Carbon Dioxide Level 23 Anion Gap 9 Blood Urea Nitrogen 41 H Creatinine 1.53 H Glucose Level 137 Calcium Level 9.7 Phosphorus Level 6.3 H Magnesium Level 1.6 L Test 03/10/17 12:14 Bedside Glucose 129 Medications Current Medications Docusate Sodium (Colace) 100 mg BID PO Last administered on 03/10/17 09:14; Admin Dose 100 MG; Start 02/27/17 at 09:00 Senna (Senokot) 1 tab HS PO Last administered on 03/09/17 21:05; Admin Dose 1 TAB; Start 02/27/17 at 21:00 Bisacodyl (Dulcolax Supp) 10 mg DAILY PRN [place] CONSTIPATION; Start 02/26/17 at 23 :30 Magnesium Hydroxide (Milk Of Mag) 30 ml BID PRN PO CONSTIPATION Last administered on 03/08/17 08:05; Admin Dose 30 ML; Start 02/26/17 at 23:30 Lactulose (Enulose) 20 gm DAILY PRN PO CONSTIPATION; Start 02/26/17 at 23:30 Acetaminophen (Tylenol Tab) 650 mg Q4H PRN PO FEVER, H/A; MILD PAIN Last administered on 03/08/17 03:20; Admin Dose 650 MG; Start 02/26/17 at 23:30 Acetaminophen/ Hydrocodone Bitart ([place] (5/325)) 1 tab Q4H PRN PO MODERATE PAIN LEVEL 4-6; Start 02/26/17 at 23:30 Acetaminophen/ Hydrocodone Bitart ([place] (5/325)) 2 tab Q4H PRN PO SEVERE PAIN Last administered on 03/10/17 10:04; Admin Dose 2 TAB; Start 02/26/17 at 23:30 Amiodarone HCl (Cordarone) 200 mg BID PO Last administered on 03/10/17 09:13; Admin Dose 200 MG; Start 02/27/17 at 09:00 Amlodipine Besylate (Norvasc) 10 mg DAILY PO Last administered on 03/10/17 09: 13; Admin Dose 10 MG; Start 02/27/17 at 09:00 Atorvastatin Calcium (Lipitor) 20 mg DAILY@21 PO Last administered on 21:06; Admin Dose 20 MG; Start 02/27/17 at 21:00 Carvedilol (Coreg) 12.5 mg BID PO Last administered on 03/10/17 09:14; Admin Dose 12.5 MG; Start 02/27/17 at 09:00 Hydralazine HCl (Apresoline) 100 mg TID PO Last administered on 03/10/17 12:40 ; Admin Dose 100 MG; Start 02/27/17 at 09:00 Aspirin (Ecotrin) 325 mg DAILY PO Last administered on 03/10/17 09:14; Admin Dose 325 MG; Start 02/27/17 at 09:00 Clonidine (Catapres) 0.1 mg Q6H PRN PO ELEVATED BLOOD PRESSURE Last administered on 03/01/17 07:12; Admin Dose 0.1 MG; Start 02/26/17 at 23:30 Diagnostic Test (Pha) (Accu-Chek) 1 ea 02 XX ; Start 02/27/17 at 02:00 Miscellaneous Information 1 ea NOTE XX ; Start 02/26/17 at 23:30 Glucose (Glutose) 15 gm Q15M PRN PO DECREASED GLUCOSE; Start 02/26/17 at 23:30 Glucose (Glutose) 22.5 gm Q15M PRN PO DECREASED GLUCOSE; Start 02/26/17 at 23: 30 Dextrose (D50w Syringe) 25 ml Q15M PRN IV DECREASED GLUCOSE; Start 02/26/17 at 23:30 Dextrose (D50w Syringe) 50 ml Q15M PRN IV DECREASED GLUCOSE; Start 02/26/17 at 23:30 Glucagon (Glucagen) 1 mg Q15M PRN IM DECREASED GLUCOSE; Start 02/26/17 at 23:30 Glucose (Glutose) 15 gm Q15M PRN BUCCAL DECREASED GLUCOSE; Start 02/26/17 at 23 :30 Gabapentin (Neurontin) 300 mg Q8 PO Last administered on 03/10/17 13:04; Admin Dose 300 MG; Start 02/27/17 at 06:00 Famotidine (Pepcid) 20 mg BID PO Last administered on 03/10/17 09:13; Admin Dose 20 MG; Start 02/28/17 at 21:00 Hydrochlorothiazide (Hydrochlorothiazide) 25 mg DAILY PO Last administered on 09:14; Admin Dose 25 MG; Start 03/04/17 at 09:00; Status Future Hold Pregabalin (Lyrica) 75 mg BID PO Last administered on 03/10/17 09:14; Admin Dose 75 MG; Start 03/03/17 at 21:00 Assessment/Plan Additional Assessment/Plan Rehabilitation- 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 Dysphagia-improving Chronic Kidney Disease. Hyperlipidemia COPD Polysubstance abuse TAYLOR RON MD Mar 10, 2017 13:21
[2017-03-10 20:00] VITALS: BP 153/89; RESP 18
[2017-03-10] MEDS: ATORVASTATIN 20 MG TAB PO SCH (20:24)
[2017-03-10] MEDS: SENNA TAB PO SCH (20:24)
[2017-03-11] MEDS: ACCUCHECK AT 2AM (Patients on SS coverage) XX SCH (02:00)
[2017-03-11] MEDS: HYDROCODONE/APAP (5/325) TAB PO PRN ×4 (02:58→21:59)
[2017-03-11 06:34] LABS: ADD SCAN DIFF NO
[2017-03-11 06:40] LABS: BASOPHILS % 0.3 % (0.0-2.0); EOSINOPHILS # 0.2 10^3/ul (0.0-0.5); EOSINOPHILS % 2.5 % (0.0-7.0); HEMATOCRIT 36.6 % (42.0-52.0); HEMOGLOBIN 12.4 g/dl (14.0-18.0); LYMPHOCYTES # 2.3 10^3/ul (0.8-2.9); LYMPHOCYTES % 31.1 % (15.0-51.0); MEAN CORPUSCULAR HEMOGLOBIN 28.2 pg (29.0-33.0); MEAN CORPUSCULAR HGB CONC 33.9 g/dl (32.0-37.0); MEAN CORPUSCULAR VOLUME 83.2 fl (82.0-101.0); MEAN PLATELET VOLUME 11.7 fl (7.4-10.4); MONOCYTE # 0.7 10^3/ul (0.3-0.9); MONOCYTES % 8.7 % (0.0-11.0); NEUTROPHIL # 4.3 10^3/ul (1.6-7.5); NEUTROPHILS % 57.3 % (39.0-77.0); PLATELET COUNT 222 10^3/UL (140-415); WHITE BLOOD COUNT 7.5 10^3/ul (4.8-10.8)
[2017-03-11] MEDS: GABAPENTIN 300 MG CAP PO SCH ×3 (06:57→21:58)
[2017-03-11 07:02] LABS: CALCIUM 9.2 mg/dl (8.4-10.2); CREATININE 1.9 mg/dl (0.61-1.24); MAGNESIUM 1.8 mg/dl (1.7-2.5); PHOSPHORUS 6.1 mg/dl (2.5-4.9); POTASSIUM 4.2 mmol/L (3.5-5.1)
[2017-03-11 07:44] VITALS: BP 135/79; RESP 18
[2017-03-11] MEDS: Insulin NOVOLOG SS MILD Algorithm (SS with meals and bedtime) SC SCH ×4 (08:11→20:38)
[2017-03-11] MEDS: PREGABALIN 75 MG CAP PO SCH (08:36)
[2017-03-11] MEDS: ASPIRIN (EC) 325 MG TAB PO SCH (09:04)
[2017-03-11] MEDS: DOCUSATE SODIUM 100 MG CAP PO SCH ×2 (09:04→20:33)
[2017-03-11] MEDS: FAMOTIDINE 20 MG TAB PO SCH (09:04)
[2017-03-11] MEDS: AMIODARONE 200 MG TAB PO SCH ×2 (09:08→20:34)
[2017-03-11] MEDS: AMLODIPINE 10 MG TAB PO SCH (09:15)
--- NOTE | 2017-03-11 11:57 | CONS ---
Date/Time of Note Date/Time of Note DATE: 03/11/17 TIME: 11:57 Consult Date/Type/Reason Admit Date/Time Feb 26, 2017 at 20:05 Initial Consult Date 02/27/17 Type of Consultation: med Objective Vital Signs Date Time Temp Pulse Resp B/P Pulse Ox O2 Delivery O2 Flow Rate FiO2 03/11/17 07:44 98.2 59 18 135/79 97 03/08/17 12:34 Room Air Intake and Output 03/10/17 03/10/17 03/11/17 15:00 23:00 07:00 Intake Total 800 ml 880 ml Output Total 800 ml 600 ml Balance 0 ml 280 ml Results/Medications Result Diagram: 03/11/17 0600 03/11/17 0600 Results 24 hrs Laboratory Tests Test 03/10/17 12:14 03/10/17 17:16 03/10/17 20:22 03/11/17 06:00 Bedside Glucose 129 106 137 White Blood Count 7.5 Red Blood Count 4.40 L Hemoglobin 12.4 L Hematocrit 36.6 L Mean Corpuscular Volume 83.2 Mean Corpuscular Hemoglobin 28.2 L Mean Corpuscular Hemoglobin Concent 33.9 Red Cell Distribution Width 13.0 Platelet Count 222 Mean Platelet Volume 11.7 H Neutrophils % 57.3 Lymphocytes % 31.1 Monocytes % 8.7 Eosinophils % 2.5 Basophils % 0.3 Nucleated Red Blood Cells % 0.0 Neutrophils # 4.3 Lymphocytes # 2.3 Monocytes # 0.7 Eosinophils # 0.2 Basophils # 0.0 Nucleated Red Blood Cells # 0.0 Sodium Level 134 L Potassium Level 4.2 Chloride Level 102 Carbon Dioxide Level 22 Anion Gap 14 Blood Urea Nitrogen 50 H Creatinine 1.90 H Glucose Level 156 Calcium Level 9.2 Phosphorus Level 6.1 H Magnesium Level 1.8 Test 03/11/17 08:05 Bedside Glucose 159 Medications Current Medications Docusate Sodium (Colace) 100 mg BID PO Last administered on 03/11/17 09:04; Admin Dose 100 MG; Start 02/27/17 at 09:00 Senna (Senokot) 1 tab HS PO Last administered on 03/10/17 20:24; Admin Dose 1 TAB; Start 02/27/17 at 21:00 Bisacodyl (Dulcolax Supp) 10 mg DAILY PRN [place] CONSTIPATION; Start 02/26/17 at 23 :30 Magnesium Hydroxide (Milk Of Mag) 30 ml BID PRN PO CONSTIPATION Last administered on 03/08/17 08:05; Admin Dose 30 ML; Start 02/26/17 at 23:30 Lactulose (Enulose) 20 gm DAILY PRN PO CONSTIPATION; Start 02/26/17 at 23:30 Acetaminophen (Tylenol Tab) 650 mg Q4H PRN PO FEVER, H/A; MILD PAIN Last administered on 03/08/17 03:20; Admin Dose 650 MG; Start 02/26/17 at 23:30 Acetaminophen/ Hydrocodone Bitart ([place] (5/325)) 1 tab Q4H PRN PO MODERATE PAIN LEVEL 4-6; Start 02/26/17 at 23:30 Acetaminophen/ Hydrocodone Bitart ([place] (5/325)) 2 tab Q4H PRN PO SEVERE PAIN Last administered on 03/11/17 06:58; Admin Dose 2 TAB; Start 02/26/17 at 23:30 Amiodarone HCl (Cordarone) 200 mg BID PO Last administered on 03/11/17 09:08; Admin Dose 200 MG; Start 02/27/17 at 09:00 Amlodipine Besylate (Norvasc) 10 mg DAILY PO Last administered on 03/11/17 09: 15; Admin Dose 10 MG; Start 02/27/17 at 09:00 Atorvastatin Calcium (Lipitor) 20 mg DAILY@21 PO Last administered on 20:24; Admin Dose 20 MG; Start 02/27/17 at 21:00 Carvedilol (Coreg) 12.5 mg BID PO Last administered on 03/11/17 09:07; Admin Dose 12.5 MG; Start 02/27/17 at 09:00 Hydralazine HCl (Apresoline) 100 mg TID PO Last administered on 03/11/17 09:07 ; Admin Dose 100 MG; Start 02/27/17 at 09:00 Aspirin (Ecotrin) 325 mg DAILY PO Last administered on 03/11/17 09:04; Admin Dose 325 MG; Start 02/27/17 at 09:00 Clonidine (Catapres) 0.1 mg Q6H PRN PO ELEVATED BLOOD PRESSURE Last administered on 03/01/17 07:12; Admin Dose 0.1 MG; Start 02/26/17 at 23:30 Diagnostic Test (Pha) (Accu-Chek) 1 ea 02 XX ; Start 02/27/17 at 02:00 Miscellaneous Information 1 ea NOTE XX ; Start 02/26/17 at 23:30 Glucose (Glutose) 15 gm Q15M PRN PO DECREASED GLUCOSE; Start 02/26/17 at 23:30 Glucose (Glutose) 22.5 gm Q15M PRN PO DECREASED GLUCOSE; Start 02/26/17 at 23: 30 Dextrose (D50w Syringe) 25 ml Q15M PRN IV DECREASED GLUCOSE; Start 02/26/17 at 23:30 Dextrose (D50w Syringe) 50 ml Q15M PRN IV DECREASED GLUCOSE; Start 02/26/17 at 23:30 Glucagon (Glucagen) 1 mg Q15M PRN IM DECREASED GLUCOSE; Start 02/26/17 at 23:30 Glucose (Glutose) 15 gm Q15M PRN BUCCAL DECREASED GLUCOSE; Start 02/26/17 at 23 :30 Gabapentin (Neurontin) 300 mg Q8 PO Last administered on 03/11/17 06:57; Admin Dose 300 MG; Start 02/27/17 at 06:00 Hydrochlorothiazide (Hydrochlorothiazide) 25 mg DAILY PO Last administered on 09:14; Admin Dose 25 MG; Start 03/04/17 at 09:00; Status Future Hold Pregabalin (Lyrica) 100 mg BID PO ; Start 03/11/17 at 21:00 Famotidine (Pepcid) 20 mg DAILY PO ; Start 03/12/17 at 09:00 TAYLOR RON MD Mar 11, 2017 11:57
[2017-03-11] MEDS: LIDOCAINE 5% PATCH TD SCH (17:05)
[2017-03-11 17:46] LABS: ADD UMIC YES; UR ASCORBIC ACID NEGATIVE (NEGATIVE); UR BILIRUBIN (Dip) NEGATIVE (NEGATIVE); UR BLOOD (Dip) NEGATIVE (NEGATIVE); UR CLARITY CLEAR (CLEAR); UR COLOR YELLOW (YELLOW); UR GLUCOSE (Dip) NEGATIVE (NEGATIVE); UR KETONES (Dip) NEGATIVE (NEGATIVE); UR LEUKOCYTE ESTERASE (Dip) NEGATIVE Leu/ul (NEGATIVE); UR NITRITE (Dip) NEGATIVE (NEGATIVE); UR RBC 1 /HPF (0-5); UR SPECIFIC GRAVITY (Dip) 1.014 (1.003-1.030); UR TOTAL PROTEIN (Dip) 2+ mg/dl (NEGATIVE); UR UROBILINOGEN (Dip) NEGATIVE (NEGATIVE)
[2017-03-11] MEDS: SENNA TAB PO SCH (20:33)
[2017-03-11] MEDS: ATORVASTATIN 20 MG TAB PO SCH (20:33)
[2017-03-11] MEDS: PREGABALIN 25 MG CAP PO SCH (20:35)
[2017-03-12] MEDS: HYDROCODONE/APAP (5/325) TAB PO PRN ×4 (02:01→13:47)
[2017-03-12] MEDS: ACCUCHECK AT 2AM (Patients on SS coverage) XX SCH (02:04)
[2017-03-12] MEDS: GABAPENTIN 300 MG CAP PO SCH ×2 (06:01→13:47)
[2017-03-12 07:01] LABS: ADD SCAN DIFF NO
[2017-03-12 07:04] LABS: BASOPHILS % 0.4 % (0.0-2.0); EOSINOPHILS # 0.2 10^3/ul (0.0-0.5); EOSINOPHILS % 2.3 % (0.0-7.0); HEMATOCRIT 36.2 % (42.0-52.0); HEMOGLOBIN 12.3 g/dl (14.0-18.0); LYMPHOCYTES # 2.8 10^3/ul (0.8-2.9); LYMPHOCYTES % 37.4 % (15.0-51.0); MEAN CORPUSCULAR HEMOGLOBIN 28.9 pg (29.0-33.0); MEAN CORPUSCULAR VOLUME 85.2 fl (82.0-101.0); MEAN PLATELET VOLUME 11.6 fl (7.4-10.4); MONOCYTE # 0.8 10^3/ul (0.3-0.9); MONOCYTES % 10.4 % (0.0-11.0); NEUTROPHIL # 3.7 10^3/ul (1.6-7.5); NEUTROPHILS % 49.4 % (39.0-77.0); PLATELET COUNT 206 10^3/UL (140-415); RED BLOOD COUNT 4.25 10^6/ul (4.70-6.10); RED CELL DISTRIBUTION WIDTH 12.8 % (11.5-14.5); WHITE BLOOD COUNT 7.4 10^3/ul (4.8-10.8)
[2017-03-12] MEDS: Insulin NOVOLOG SS MILD Algorithm (SS with meals and bedtime) SC SCH ×2 (07:05→12:35)
[2017-03-12 07:30] VITALS: BP 146/85; RESP 18
[2017-03-12 07:33] LABS: CALCIUM 9.5 mg/dl (8.4-10.2); CREATININE 1.62 mg/dl (0.61-1.24); MAGNESIUM 1.9 mg/dl (1.7-2.5); PHOSPHORUS 5.4 mg/dl (2.5-4.9); POTASSIUM 4.2 mmol/L (3.5-5.1)
[2017-03-12] MEDS: ASPIRIN (EC) 325 MG TAB PO SCH (08:36)
[2017-03-12] MEDS: AMIODARONE 200 MG TAB PO SCH (08:36)
[2017-03-12] MEDS: AMLODIPINE 10 MG TAB PO SCH (08:37)
[2017-03-12] MEDS: PREGABALIN 25 MG CAP PO SCH (08:37)
[2017-03-12] MEDS: DOCUSATE SODIUM 100 MG CAP PO SCH (08:37)
[2017-03-12] MEDS: LIDOCAINE 5% PATCH TD SCH (08:38)
[2017-03-12] MEDS ORDERED: FAMOTIDINE 20 MG TAB PO SCH (09:00)
--- NOTE | 2017-03-12 11:02 | PN ---
Date/Time of Note Date/Time of Note DATE: 03/12/17 TIME: 11:00 Assessment/Plan Lines/Catheters Urinary Cath still in place: No Assessment/Plan Chief Complaint/Hosp Course 1 acute CVA with right-sided hemiparesis. -Slowly improving Plan is to continue current medical management continue aspirin continue statin therapy continue good blood pressure control. Continue physical therapy occupational therapy 2. Hyponatremia -Etiology multifactorial, hydrochlorothiazide effect, chronic kidney disease causing decreased free water urine excretion -Discontinue hydrochlorothiazide -Limit free water intake no more than 1 L daily -Sodium levels improving 2. Hypertension -Blood pressure improving. -Discontinue hydrochlorothiazide -Continue current blood pressure medications -Monitor closely 3. 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 Patient with nephrotic range proteinuria -Urinalysis is bland. Patient has significant proteinuria on protein creatinine ratio. Albumin creatinine ratio pending -Renal ultrasound reviewed showed increased echogenicity consistent with CKD We will continue supportive care renally dose meds avoid nephrotoxic -We will hold diuretics 4. Anemia monitor H&H levels 5 diabetes continue Accu-Cheks insulin sliding scale 6 mineral bone disorder will monitor calcium phosphorus levels 7 history of COPD. Continue to monitor continue medical management 8. GI DVT prophylaxis continue PPI aspirin sequential leg squeezers 9. History of arrhythmia. Patient is on amiodarone and Coreg. We will continue to monitor consider cardiology evaluation Problems: Subjective 24 Hr Interval Summary Free Text/Dictation Patient seen and examined no events overnight Exam/Review of Systems Vital Signs Vitals Vital Signs Date Time Temp Pulse Resp B/P Pulse Ox O2 Delivery O2 Flow Rate FiO2 03/11/17 07:44 98.2 59 18 135/79 97 03/08/17 12:34 Room Air Intake and Output 03/11/17 03/11/17 03/12/17 15:00 23:00 07:00 Intake Total 1400 ml 600 ml Output Total 1800 ml 600 ml Balance -400 ml 0 ml Exam Generally patient is in no acute distress HEENT head is normocephalic pupils are reactive to light Heart is regular rate no gallops clicks Lungs show diminished breath sounds at the base Abdomen soft nontender palpation rebound guarding Extremities are negative for clubbing cyanosis no edema Dermatologically no rashes Musculoskeletal no joint effusion Neurologically patient has right-sided hemiparesis Results Result Diagram: 03/12/17 0631 03/12/17 0631 Results 24 hrs Laboratory Tests Test 03/11/17 12:04 03/11/17 16:15 03/11/17 17:07 03/11/17 20:30 Bedside Glucose 166 171 181 Urine Color YELLOW Urine Clarity CLEAR Urine pH 5.0 Urine Specific [place] 1.014 Urine Ketones NEGATIVE Urine Nitrite NEGATIVE Urine Bilirubin NEGATIVE Urine Urobilinogen NEGATIVE Urine Leukocyte Esterase NEGATIVE Urine Microscopic RBC 1 Urine Microscopic WBC 0 Urine Hemoglobin NEGATIVE Urine Random Creatinine 60.12 Urine Random Sodium 66 Urine Glucose NEGATIVE Urine Total Protein 2+ H Test 03/12/17 01:57 03/12/17 06:31 03/12/17 07:55 Bedside Glucose 152 140 White Blood Count 7.4 Red Blood Count 4.25 L Hemoglobin 12.3 L Hematocrit 36.2 L Mean Corpuscular Volume 85.2 Mean Corpuscular Hemoglobin 28.9 L Mean Corpuscular Hemoglobin Concent 34.0 Red Cell Distribution Width 12.8 Platelet Count 206 Mean Platelet Volume 11.6 H Neutrophils % 49.4 Lymphocytes % 37.4 Monocytes % 10.4 Eosinophils % 2.3 Basophils % 0.4 Nucleated Red Blood Cells % 0.0 Neutrophils # 3.7 Lymphocytes # 2.8 Monocytes # 0.8 Eosinophils # 0.2 Basophils # 0.0 Nucleated Red Blood Cells # 0.0 Sodium Level 133 L Potassium Level 4.2 Chloride Level 104 Carbon Dioxide Level 24 Anion Gap 9 # Blood Urea Nitrogen 54 H Creatinine 1.62 H Glucose Level 161 Calcium Level 9.5 Phosphorus Level 5.4 H Magnesium Level 1.9 Medications Medications Current Medications Docusate Sodium (Colace) 100 mg BID PO Last administered on 03/12/17 08:37; Admin Dose 100 MG; Start 02/27/17 at 09:00 Senna (Senokot) 1 tab HS PO Last administered on 03/11/17 20:33; Admin Dose 1 TAB; Start 02/27/17 at 21:00 Bisacodyl (Dulcolax Supp) 10 mg DAILY PRN [place] CONSTIPATION; Start 02/26/17 at 23 :30 Magnesium Hydroxide (Milk Of Mag) 30 ml BID PRN PO CONSTIPATION Last administered on 03/08/17 08:05; Admin Dose 30 ML; Start 02/26/17 at 23:30 Lactulose (Enulose) 20 gm DAILY PRN PO CONSTIPATION; Start 02/26/17 at 23:30 Acetaminophen (Tylenol Tab) 650 mg Q4H PRN PO FEVER, H/A; MILD PAIN Last administered on 03/08/17 03:20; Admin Dose 650 MG; Start 02/26/17 at 23:30 Acetaminophen/ Hydrocodone Bitart ([place] (5/325)) 1 tab Q4H PRN PO MODERATE PAIN LEVEL 4-6; Start 02/26/17 at 23:30 Acetaminophen/ Hydrocodone Bitart ([place] (5/325)) 2 tab Q4H PRN PO SEVERE PAIN Last administered on 03/12/17 09:46; Admin Dose 2 TAB; Start 02/26/17 at 23:30 Amiodarone HCl (Cordarone) 200 mg BID PO Last administered on 03/12/17 08:36; Admin Dose 200 MG; Start 02/27/17 at 09:00 Amlodipine Besylate (Norvasc) 10 mg DAILY PO Last administered on 03/12/17 08: 37; Admin Dose 10 MG; Start 02/27/17 at 09:00 Atorvastatin Calcium (Lipitor) 20 mg DAILY@21 PO Last administered on 20:33; Admin Dose 20 MG; Start 02/27/17 at 21:00 Carvedilol (Coreg) 12.5 mg BID PO Last administered on 03/12/17 08:38; Admin Dose 12.5 MG; Start 02/27/17 at 09:00 Hydralazine HCl (Apresoline) 100 mg TID PO Last administered on 03/12/17 08:37 ; Admin Dose 100 MG; Start 02/27/17 at 09:00 Aspirin (Ecotrin) 325 mg DAILY PO Last administered on 03/12/17 08:36; Admin Dose 325 MG; Start 02/27/17 at 09:00 Clonidine (Catapres) 0.1 mg Q6H PRN PO ELEVATED BLOOD PRESSURE Last administered on 03/01/17 07:12; Admin Dose 0.1 MG; Start 02/26/17 at 23:30 Diagnostic Test (Pha) (Accu-Chek) 1 ea 02 XX Last administered on 03/12/17 02: 04; Admin Dose 1 EA; Start 02/27/17 at 02:00 Miscellaneous Information 1 ea NOTE XX ; Start 02/26/17 at 23:30 Glucose (Glutose) 15 gm Q15M PRN PO DECREASED GLUCOSE; Start 02/26/17 at 23:30 Glucose (Glutose) 22.5 gm Q15M PRN PO DECREASED GLUCOSE; Start 02/26/17 at 23: 30 Dextrose (D50w Syringe) 25 ml Q15M PRN IV DECREASED GLUCOSE; Start 02/26/17 at 23:30 Dextrose (D50w Syringe) 50 ml Q15M PRN IV DECREASED GLUCOSE; Start 02/26/17 at 23:30 Glucagon (Glucagen) 1 mg Q15M PRN IM DECREASED GLUCOSE; Start 02/26/17 at 23:30 Glucose (Glutose) 15 gm Q15M PRN BUCCAL DECREASED GLUCOSE; Start 02/26/17 at 23 :30 Gabapentin (Neurontin) 300 mg Q8 PO Last administered on 03/12/17 06:01; Admin Dose 300 MG; Start 02/27/17 at 06:00 Hydrochlorothiazide (Hydrochlorothiazide) 25 mg DAILY PO Last administered on 09:14; Admin Dose 25 MG; Start 03/04/17 at 09:00; Status Future Hold Pregabalin (Lyrica) 100 mg BID PO Last administered on 03/12/17 08:37; Admin Dose 100 MG; Start 03/11/17 at 21:00 Famotidine (Pepcid) 20 mg DAILY PO Last administered on 03/12/17 08:37; Admin Dose 20 MG; Start 03/12/17 at 09:00 Lidocaine (Lidoderm) 1 patch DAILY TD Last administered on 03/12/17 08:38; Admin Dose 1 PATCH; Start 03/11/17 at 15:00 BRITTON ARAMBULA DO Mar 12, 2017 11:01
--- NOTE | 2017-03-12 12:09 | CONS ---
Date/Time of Note Date/Time of Note DATE: 03/12/17 TIME: 12:09 Consult Date/Type/Reason Admit Date/Time Feb 26, 2017 at 20:05 Initial Consult Date 02/27/17 Type of Consultation: med Objective Vital Signs Date Time Temp Pulse Resp B/P Pulse Ox O2 Delivery O2 Flow Rate FiO2 03/11/17 07:44 98.2 59 18 135/79 97 03/08/17 12:34 Room Air Intake and Output 03/11/17 03/11/17 03/12/17 15:00 23:00 07:00 Intake Total 1400 ml 600 ml Output Total 1800 ml 600 ml Balance -400 ml 0 ml Results/Medications Result Diagram: 03/12/1731 03/12/17 0631 Results 24 hrs Laboratory Tests Test 03/11/17 16:15 03/11/17 17:07 03/11/17 20:30 03/12/17 01:57 Urine Color YELLOW Urine Clarity CLEAR Urine pH 5.0 Urine Specific [place] 1.014 Urine Ketones NEGATIVE Urine Nitrite NEGATIVE Urine Bilirubin NEGATIVE Urine Urobilinogen NEGATIVE Urine Leukocyte Esterase NEGATIVE Urine Microscopic RBC 1 Urine Microscopic WBC 0 Urine Hemoglobin NEGATIVE Urine Random Creatinine 60.12 Urine Random Sodium 66 Urine Glucose NEGATIVE Urine Total Protein 2+ H Bedside Glucose 171 181 152 Test 03/12/17 06:31 03/12/17 07:55 03/12/17 12:00 White Blood Count 7.4 Red Blood Count 4.25 L Hemoglobin 12.3 L Hematocrit 36.2 L Mean Corpuscular Volume 85.2 Mean Corpuscular Hemoglobin 28.9 L Mean Corpuscular Hemoglobin Concent 34.0 Red Cell Distribution Width 12.8 Platelet Count 206 Mean Platelet Volume 11.6 H Neutrophils % 49.4 Lymphocytes % 37.4 Monocytes % 10.4 Eosinophils % 2.3 Basophils % 0.4 Nucleated Red Blood Cells % 0.0 Neutrophils # 3.7 Lymphocytes # 2.8 Monocytes # 0.8 Eosinophils # 0.2 Basophils # 0.0 Nucleated Red Blood Cells # 0.0 Sodium Level 133 L Potassium Level 4.2 Chloride Level 104 Carbon Dioxide Level 24 Anion Gap 9 # Blood Urea Nitrogen 54 H Creatinine 1.62 H Glucose Level 161 Calcium Level 9.5 Phosphorus Level 5.4 H Magnesium Level 1.9 Bedside Glucose 140 177 Medications Current Medications Docusate Sodium (Colace) 100 mg BID PO Last administered on 03/12/17 08:37; Admin Dose 100 MG; Start 02/27/17 at 09:00 Senna (Senokot) 1 tab HS PO Last administered on 03/11/17 20:33; Admin Dose 1 TAB; Start 02/27/17 at 21:00 Bisacodyl (Dulcolax Supp) 10 mg DAILY PRN [place] CONSTIPATION; Start 02/26/17 at 23 :30 Magnesium Hydroxide (Milk Of Mag) 30 ml BID PRN PO CONSTIPATION Last administered on 03/08/17 08:05; Admin Dose 30 ML; Start 02/26/17 at 23:30 Lactulose (Enulose) 20 gm DAILY PRN PO CONSTIPATION; Start 02/26/17 at 23:30 Acetaminophen (Tylenol Tab) 650 mg Q4H PRN PO FEVER, H/A; MILD PAIN Last administered on 03/08/17 03:20; Admin Dose 650 MG; Start 02/26/17 at 23:30 Acetaminophen/ Hydrocodone Bitart ([place] (5/325)) 1 tab Q4H PRN PO MODERATE PAIN LEVEL 4-6; Start 02/26/17 at 23:30 Acetaminophen/ Hydrocodone Bitart ([place] (5/325)) 2 tab Q4H PRN PO SEVERE PAIN Last administered on 03/12/17 09:46; Admin Dose 2 TAB; Start 02/26/17 at 23:30 Amiodarone HCl (Cordarone) 200 mg BID PO Last administered on 03/12/17 08:36; Admin Dose 200 MG; Start 02/27/17 at 09:00 Amlodipine Besylate (Norvasc) 10 mg DAILY PO Last administered on 03/12/17 08: 37; Admin Dose 10 MG; Start 02/27/17 at 09:00 Atorvastatin Calcium (Lipitor) 20 mg DAILY@21 PO Last administered on 20:33; Admin Dose 20 MG; Start 02/27/17 at 21:00 Carvedilol (Coreg) 12.5 mg BID PO Last administered on 03/12/17 08:38; Admin Dose 12.5 MG; Start 02/27/17 at 09:00 Hydralazine HCl (Apresoline) 100 mg TID PO Last administered on 03/12/17 08:37 ; Admin Dose 100 MG; Start 02/27/17 at 09:00 Aspirin (Ecotrin) 325 mg DAILY PO Last administered on 03/12/17 08:36; Admin Dose 325 MG; Start 02/27/17 at 09:00 Clonidine (Catapres) 0.1 mg Q6H PRN PO ELEVATED BLOOD PRESSURE Last administered on 03/01/17 07:12; Admin Dose 0.1 MG; Start 02/26/17 at 23:30 Diagnostic Test (Pha) (Accu-Chek) 1 ea 02 XX Last administered on 03/12/17 02: 04; Admin Dose 1 EA; Start 02/27/17 at 02:00 Miscellaneous Information 1 ea NOTE XX ; Start 02/26/17 at 23:30 Glucose (Glutose) 15 gm Q15M PRN PO DECREASED GLUCOSE; Start 02/26/17 at 23:30 Glucose (Glutose) 22.5 gm Q15M PRN PO DECREASED GLUCOSE; Start 02/26/17 at 23: 30 Dextrose (D50w Syringe) 25 ml Q15M PRN IV DECREASED GLUCOSE; Start 02/26/17 at 23:30 Dextrose (D50w Syringe) 50 ml Q15M PRN IV DECREASED GLUCOSE; Start 02/26/17 at 23:30 Glucagon (Glucagen) 1 mg Q15M PRN IM DECREASED GLUCOSE; Start 02/26/17 at 23:30 Glucose (Glutose) 15 gm Q15M PRN BUCCAL DECREASED GLUCOSE; Start 02/26/17 at 23 :30 Gabapentin (Neurontin) 300 mg Q8 PO Last administered on 03/12/17 06:01; Admin Dose 300 MG; Start 02/27/17 at 06:00 Hydrochlorothiazide (Hydrochlorothiazide) 25 mg DAILY PO Last administered on 09:14; Admin Dose 25 MG; Start 03/04/17 at 09:00; Status Future Hold Pregabalin (Lyrica) 100 mg BID PO Last administered on 03/12/17 08:37; Admin Dose 100 MG; Start 03/11/17 at 21:00 Famotidine (Pepcid) 20 mg DAILY PO Last administered on 03/12/17 08:37; Admin Dose 20 MG; Start 03/12/17 at 09:00 Lidocaine (Lidoderm) 1 patch DAILY TD Last administered on 03/12/17 08:38; Admin Dose 1 PATCH; Start 03/11/17 at 15:00 TAYLOR RON MD Mar 12, 2017 12:09
[2017-03-13 16:01] LABS: MICROALBUMIN 119.9 mg/dL
== END 2017-03-12 14:20 | DRG 57 ==
LOC: VRC 20:05
PROVIDERS: ADMIT Physical Medicine & Rehabilitation; ATTEND Internal Medicine Nephrology
PROC: F07Z5ZZ Bed Mobility Treatment (ICD-10-PCS; principal; 2017-02-26)
PROC: F08Z2ZZ Grooming/Personal Hygiene Treatment (ICD-10-PCS; 2017-02-26)
PROC: F06Z6ZZ Communicative/Cognitive Integration Skills Treatment (ICD-10-PCS; 2017-02-26)
DX: I69.351 Hemiplegia and hemiparesis following cerebral infarction affecting right dominant side (principal); E11.22 Type 2 diabetes mellitus with diabetic chronic kidney disease; E11.40 Type 2 diabetes mellitus with diabetic neuropathy, unspecified; R13.10 Dysphagia, unspecified; E83.9 Disorder of mineral metabolism, unspecified; I12.9 Hypertensive chronic kidney disease with stage 1 through stage 4 chronic kidney disease, or unspecified chronic kidney disease; N18.9 Chronic kidney disease, unspecified; D64.9 Anemia, unspecified; J44.9 Chronic obstructive pulmonary disease, unspecified; E78.5 Hyperlipidemia, unspecified; F19.10 Other psychoactive substance abuse, uncomplicated
CPT/HCPCS: 76775; 80048; 80053; 81001; 81003; 82043; 82962; 83036; 83735; 84100; 84155; 84300; 85025; 87081; 87086; 92507; 92523; 92526; 92610; 97110; 97112; 97116; 97150; 97163; 97167; 97530; 97535; 97542; J1815; L1820; L2270; L2275; L2820